=== PATIENT | male | born 1995 | race Caucasian/White ===

== ENCOUNTER → 2020-04-09 | Outpatient (CLI) | payer OTHER ==
[~2020-04-09] MED LIST: ADV500INH INFIL; ADVA1AER2 IN; ALB2.5NEB INH; ALBU0.084 INH; ALBU83IN IN; ALBUTEROL INH; AZITPOW PO; CELE20TA OR; CITA10TA2 PO; FLUT50SP; IBUP100S PO; PRED10TA2 PO; PRED20TA OR; PREDPOW10 PO; VENTAER IN; VENTAER PO
--- NOTE | 2020-04-09 16:52 | REP ---
INDICATION: CHRONIC PANSINUSITIS, DNS. COMPARISON: NONE. TECHNIQUE: Helical scanning is acquired and 2 mm axial images re-formatted. Coronal MPR images are generated and reviewed. FINDINGS: There are 2 small mucous retention cyst in the floor of the left maxillary sinus. The maxillary sinuses are otherwise clear. Ethmoid air cells are clear. Sphenoid and frontal sinuses are clear. Mastoid aeration is normal and symmetric. The bony nasal septum deviates somewhat to the left with a small beak. Nasal turbinates soft tissues are symmetric. There is a small aerated ana bullosa on the left. There are small Sridhar cells bilaterally but ostiomeatal complexes are patent. Nasal ethmoid recesses are unremarkable. No bony destructive lesion is seen. No intraorbital or deep facial soft tissue mass is seen. The visualized intracranial structures are unremarkable. IMPRESSION: Mild mucosal thickening in the inferior aspect the left maxillary sinus. Leftward deviation of the nasal septum. Sridhar cells. Otherwise negative. <Electronically signed by Darrian Hoyt > 04/09/20 [id number]
== END ==
LOC: M RAD 15:37
PROVIDERS: ATTEND Specialist
DX: J32.4 Chronic pansinusitis (principal); J34.2 Deviated nasal septum

== ENCOUNTER 2020-05-20 16:39 | Inpatient (IN) | payer OTHER ==
[~2020-05-20] VITALS: Ht 170.2 cm; Wt 109.1 kg
--- OUTSIDE RECORDS SUMMARY | 2020-05-20 16:48 | CCD | Continuity of Care Document ---
Author Author Rodrick ROA [facility] Organization Unknown Address [address] [address] Phone [phone] Care Team Providers Care Machine Assembler Supervisor Name Role Phone [facility] Allergy - Allergy & Immunology AUTM [phone] [facility] - Mental Health AUTM [phone] Problems Active Problems Provider Date Allergic asthma without status asthmaticus Kayode Roa RPA Onset: 12/31/2013 Allergic condition Kayode Roa RPA Onset: 12/31/2013 Familial hypoalphalipoproteinemia Kayode Roa RPA Ons et: 01/01/2014 Autistic disorder Kayode Roa RPA Onset: 08/30/2019 Social History Type Date Description Comments Sex Unknown ETOH Use Denies alcohol use Tobacco Use Start: Unknown Patient has never smoked Recreational Drug Use Denies Drug Use Allergies, Adverse Reactions, Alerts Active Allergies Reaction Severity Comments Date Amoxicillin Urticaria Moderate 12/31/2013 Medications Active Medications SIG Qnty Indications Ordering Provide r Date Citalopram Hydrobromide 10mg Table ts 1 by mouth every day at bedtime 30tabs Adin Murillo D.O. , FAAFP 08/30/2019 Ventolin HFA 108(90Base) mcg/Act A erosol ii puffs every 4-6 hours as needed 8gm Adin batista D.O., FAAFP Medications Administered in Office Medication SIG Qnty Indications Ordering Provider Date Injection (SC)/(Im) Injection Nurses Schedule 06/13/2014 Immunizations CPT Code Status Date Vaccine Lot # [id number] Given 03/06/2020 Influenza Virus Vaccine, Quadrivalent, Slit Virus, Im Use 3Y & Up [id number] Vital Signs Date Vital Result Comment 03/06/2020 2:11pm BP Systolic 110 mmHg BP Diastolic 64 mmHg Body Temperature 98.7 F Heart Rate 58 /min Respiratory Rate 16 /min Height 66.75 inches 5'6.75" Weight 232.00 lb [place] Body Weight 142 lb BMI (Body Mass Index) 36.6 kg/m2 O2 % BldC Oximetry 97 % 08/30/2019 3:57pm BP Systolic 124 mmHg BP Diastolic 62 mmHg Body Temperature 98.3 F Heart Rate 72 /min Respiratory Rate 16 /min Height 66.75 inches 5'6.75" Weight 217.00 lb [place] Body Weight 142 lb BMI (Body Mass Index) 34.2 kg/m2 O2 % BldC Oximetry 97 % Results Description No Information Available Procedures Description No Information Available Medical Devices Description No Information Available Encounters Type Date Location Provider Dx Diagnosis Office Visit 03/06/2020 1:15p [place] [facility] Kayode Roa, RP A J34.2 Deviated nasal septum R09.81 Nasal congestion J32.9 Chronic sinusitis, unspecifi ed Z23 Encounter for immunization Assessments Date Code Description Provider 03/06/2020 J34.2 Deviated nasal septum Nicolette Roa, DONNIE 03/06/2020 R09.81 Nasal congestion Kayode Roa, DONNIE 03/06/2020 J32.9 Chronic sinusitis, unspecified H Kayode jenkins, DONNIE 03/06/2020 Z23 Encounter for immunization Kayode Grossman RPA Plan of Treatment Future Appointment(s):* 06/08/2020 1:00 pm - Kayode Roa, DONNIE at [facility] Functional Status Description No Information Available Mental Status Description No Information Available Referrals Refer to Reason for Referral Status Appt Date Eliceo Pugh M.D. Septal deviation with chroni c sinus issues. External deformity. Sent [facility] [address] [address] [phone]
--- OUTSIDE RECORDS SUMMARY | 2020-05-20 16:48 | CCD | Continuity of Care Document ---
Author Author Rodrick ROA [facility] Organization Unknown Address [address] [address] Phone [phone] Care Team Providers Care Heating Worker Name Role Phone [facility] Allergy - Allergy & Immunology AUTM [phone] [facility] - Mental Health AUTM [phone] Problems Active Problems Provider Date Allergic asthma [...] Injection (SC)/(Im) Injection Nurses Schedule 06/13/2014 Immunizations Description No Information Available Vital Signs Date Vital Result Comment 08/30/2019 3:57pm BP Systolic 124 mmHg BP Diastolic 62 mmHg Body Temperature 98.3 F Heart Rate 72 /min Respiratory Rate 16 /min Height 66.75 inches 5'6.75" Weight 217.00 lb [place] Body Weight 142 lb BMI (Body Mass Index) 34.2 kg/m2 O2 % BldC Oximetry 97 % 05/15/2018 4:01pm BP Systolic 124 mmHg BP Diastolic 70 mmHg Body Temperature 98.3 F Heart Rate 80 /min Respiratory Rate 16 /min Height 66.75 inches 5'6.75" Weight 234.00 lb [place] Body Weight 142 lb BMI (Body Mass Index) 36.9 kg/m2 O2 % BldC Oximetry 98 % Results Description No Information Available Procedures Description No Information Available Medical Devices Description No Information Available Encounters Type Date Location Provider Dx Diagnosis Office Visit 03/06/2020 1:15p [place] [facility] Kayode Roa, RP A J34.2 Deviated nasal septum R09.81 Nasal congestion J32.9 Chronic sinusitis, unspecifi ed Assessments Date Code Description Provider 03/06/2020 J34.2 Deviated nasal septum Nicolette Roa, RPA 03/06/2020 R09.81 Nasal congestion Kayode Roa, RPA 03/06/2020 J32.9 Chronic sinusitis, unspecified H Kayode jenkins, RPA Plan of Treatment No Information Available Functional Status Description No Information Available Mental Status Description No Information Available Referrals Refer to Reason for Referral Status Appt Date Eliceo Pugh M.D. Septal deviation with chroni c sinus issues. External deformity. Created [facility] [address] [address] [phone]
--- OUTSIDE RECORDS SUMMARY | 2020-05-20 16:49 | CCD ---
Author Author [facility] Organization [facility] Address Unknown Phone Unavailable Care Team Providers Care Toolroom Machinist Name Role Phone Melodie Roa Kayode PA Unavailable Unavailable Crispin, D Kayode PA Unavailable Unavailable Crispin, D Kayode PA Unavailable Unavailable Crispin, D Kayode PA Unavailable Unavailable Crispin, D Kayode PA Unavailable Unavailable Crispin, D Kayode PA Unavailable Unavailable Crispin, D Kayode PA Unavailable Unavailable Crispin, D Kayode PA Unavailable Unavailable Crispin, D Kayode PA Unavailable Unavailable Crispin, D Kayode PA Unavailable Unavailable Crispin, D Kayode PA Unavailable Unavailable Crispin, D Kayode PA Unavailable Unavailable Crispin, D Kayode PA Unavailable Unavailable Crispin, D Kayode PA Unavailable Unavailable Crispin, D Kayode PA Unavailable Unavailable Crispin, D Kayode PA Unavailable Unavailable Crispin, D Kayode PA Unavailable Unavailable Crispin, D Kayode PA Unavailable Unavailable Crispin, D Kayode PA Unavailable Unavailable Crispin, D Kayode PA Unavailable Unavailable Crispin, D Kayode PA Unavailable Unavailable Crispin, D Kayode PA Unavailable Unavailable Crispin, D Kayode PA Unavailable Unavailable Crispin, D Kayode PA Unavailable Unavailable Cripsin, D Kayode PA Unavailable Unavailable Crispin, D Kayode PA Unavailable Unavailable Crispin, D Kayode PA Unavailable Unavailable Crispin, D Kayode PA Unavailable Unavailable Crispin, D Kayode PA Unavailable Unavailable Crispin, D Kayode PA Unavailable Unavailable Crispin, D Kayode PA Unavailable Unavailable Crispin, D Kayode PA Unavailable Unavailable Crispin, D Kayode PA Unavailable Unavailable Crispin, D Kayode PA Unavailable Unavailable Crispin, D Kayode PA Unavailable Unavailable Crispin, D Kayode PA Unavailable Unavailable Crispin, D Kayode PA Unavailable Unavailable Crispin, D Kayode PA Unavailable Unavailable Crispin, D Kayode PA Unavailable Unavailable Crispin, D Kayode PA Unavailable Unavailable Crispin, D Kayode PA Unavailable Unavailable Crispin, D Kayode PA Unavailable Unavailable Crispin, D Kayode PA Unavailable Unavailable Crispin, D Kayode PA Unavailable Unavailable Crispin, D Kayode PA Unavailable Unavailable Crispin, D Kayode PA Unavailable Unavailable Crispin, D Kayode PA Unavailable Unavailable Crispin, D Kayode PA Unavailable Unavailable Crispin, D Kayode PA Unavailable Unavailable Crispin, D Kayode PA Unavailable Unavailable Crispin, D Kayode PA Unavailable Unavailable Crispin, D Kayode PA Unavailable Unavailable Crispin, D Kayode PA Unavailable Unavailable Crispin, D Kayode PA Unavailable Unavailable Crispin, D Kayode PA Unavailable Unavailable Crispin, D Kayode PA Unavailable Unavailable Crispin, D Kayode PA Unavailable Unavailable Crispin, D Kayode PA Unavailable Unavailable Crispin, D Kayode PA Unavailable Unavailable Crispin, D Kayode PA Unavailable Unavailable Crispin, D Kayode PA Unavailable Unavailable Crispin, D Kayode PA Unavailable Unavailable Crispin, D Kayode PA Unavailable Unavailable BROUGHAL, C LEEANN PA Unavailable Unavailable BROUGHAL, C LEEANN PA Unavailable Unavailable BROUGHAL, C LEEANN PA Unavailable Unavailable BROUGHAL, C LEEANN PA Unavailable Unavailable BROUGHAL, C LEEANN PA Unavailable Unavailable BROUGHAL, C LEEANN PA Unavailable Unavailable Re-disclosure Warning The records that you are about to access may contain information from federally-assisted alcohol or drug abuse programs. If such information is present, then the following federally mandated warning applies: This information has been disclosed to you from records protected by federal confidentiality rules (42 CFR part 2). The federal rules prohibit you from making any further disclosure of this information unless further disclosure is expressly permitted by the written consent of the person to whom it pertains or as otherwise permitted by 42 CFR part 2. A general authorization for the release of medical or other information is NOT sufficient for this purpose. The Federal rules restrict any use of the information to criminally investigate or prosecute any alcohol or drug abuse patient.The records that you are about to access may contain highly sensitive health information, the redisclosure of which is protected by Article 27-F of the [facility] Public Health law. If you continue you may have access to information: Regarding HIV / AIDS; Provided by facilities licensed or operated by the [facility] Office of Mental Health; or Provided by the [facility] Office for People With Developmental Disabilities. If such information is present, then the following [facility] mandated warning applies: This information has been disclosed to you from confidential records which are protected by state law. State law prohibits you from making any further disclosure of this information without the specific written consent of the person to whom it pertains, or as otherwise permitted by law. Any unauthorized further disclosure in violation of state law may result in a fine or fpc sentence or both. A general authorization for the release of medical or other information is NOT sufficient authorization for further disc losure. Family History Family Member Name Family Member Gender Family Member Status Date o f Status Description Data Source(s) Unknown Male Problem [facility]ENT ([facility]) Unknown Unknown Problem [facility] ([facility]) Unknown Unknown Problem [facility] ([facility]) Encounters Encounter Providers Location Date Indications Data Source(s ) Outpatient Attender: Kayode BROOKS [facility] 01:15:00 PM EDT [facility] ([facility] Outpatient Attender: LEEANN BROOKS CPSCAORT-LABPNP 12/06 03:10:00 PM EDT - 12/24/2019 03:11:00 PM EDT COVID 19 COLLEGE SCREENING [facility] COVID 19 COLLEGE SCREENING Patient discharged. Outpatient Attender: Kayode BROOKS [facility] 04:00:00 PM EDT MED[facility] ([facility] Immunizations Vaccine Date Status Description Data Source(s) New in 2012. IIV4 03/06/2020 02:12:00 PM EDT completed [facility] ([facility] Medications Medication Brand Name Start Date Product Form Dose Route Admi nistrative Instructions Pharmacy Instructions Status Indications Reaction Description Data Source(s) 90 mcg/actuation 02/02/2020 12:00:00 AM EDT HFA aerosol inha ler 8 INHALE TWO PUFFS BY MOUTH EVERY 4 TO 6 HOURS NEEDED INHALE TWO PUFFS BY MOUTH EVERY 4 TO 6 HOURS NEEDED SOLD: 02/03/2020 [facility] 10 mg 08/30/2019 12:00:00 AM EDT tablet 30 TAKE ONE TABLET BY MOUTH EVERY DAY AT BEDTIME TAKE ONE TABLET BY MOUTH EVERY DAY AT BEDTIME SOLD: 11/11/2019 [facility] 250 mg 08/30/2019 12:00:00 AM EDT tablet 6 TAKE TWO TABLETS BY MOUTH AT ONCE ON THE FIRST DAY THEN TAKE ONE DAILY THEREAFTER TAKE TWO TABLETS BY MOUTH AT ONCE ON THE FIRST DAY THEN TAKE ONE DAILY THEREAFTER SOLD: 08/31/2019 [facility] 10 mg 08/30/2019 12:00:00 AM EDT tablet 30 TAKE ONE TABLET BY MOUTH EVERY DAY AT BEDTIME TAKE ONE TABLET BY MOUTH EVERY DAY AT BEDTIME SOLD: 10/05/2019 [facility] Citalopram 10 MG Oral Tablet Citalopram Hydrobromide 08/30/2019 12:00:00 AM EDT ORAL active MEDENT ( [facility] 10 mg 08/30/2019 12:00:00 AM EDT tablet 30 TAKE ONE TABLET BY MOUTH EVERY DAY AT BEDTIME TAKE ONE TABLET BY MOUTH EVERY DAY AT BEDTIME SOLD: 08/31/2019 [facility] Azithromycin 250 MG Oral Tablet Azithromycin 08/30/2019 12:00:00 AM E DT ORAL active MEDENT ([facility] Insurance Providers Payer name Policy type / Coverage type Policy ID Covered democrat ID Covered democrat's relationship to leach Policy Leach Plan Information [facility] [id number] SP [id number] [facility] O [id number] S [id number] [facility] [id number] SP [id number] [facility] ESSENTIAL PLAN [id number] S [id number] [facility] SELECT CARE [id number] CHILD [id number] [facility] Health Plan Health Maintenance Organization (HMO) [id number] Self [id number] [facility]BS Medigap Part B [id number] Self [id number] Medicaid Medicaid [id number] Self [id number] Community Plan Commercial [id number] Self [id number] [place] BC//BS Medigap Part B [id number] Family Dependent [id number] [employer] BC//BS Commercial [id number] Self [id number] BS Child Health Plus Health Maintenance Organization (HMO) Self PUPIL BENEFITS HEALTH PL S [id number] [employer] BCBS P [id number] S [id number] D [employer] BCBS Dental P [id number] S [id number] PUPIL BENEFITS PLAN, INC [id number] SP [id number] BLUE CROSS THOMAS PLAN [id number] SP [id number] D Managed Care [facility] P [id number] S [id number] Medicaid Dental S [id number] S [id number] D Healthplex O [id number] HMO BLUE [id number] SP [id number] Problems, Conditions, and Diagnoses Code Display Name Description Problem Type Effective Dates Data Source(s) [id number] Autistic disorder Autistic disorder Problem 08/29 12:00:00 AM EDT [facility] ([facility] Z11.59 Encounter for screening for other viral diseases ENCOUNTER FOR SCREENING FOR OTHER VIRAL DISEASES Diagnosis 12/24/2019 03:10:00 PM EDT [facility] Z02.0 Encounter for examination for admission to educational institution ENCOUNTER FOR EXAM FOR ADMISSION TO EDUCATIONAL INSTITUTION Diagnosis 12/24/2019 03:10:00 PM EDT [facility] Surgeries/Procedures Procedure Description Date Indications Data Source(s) U0003 SARS-CoV-2 detection by nucleic acid 12/24/2019 12:00: 00 AM EDT [facility] Results ID Date Data Source [id number] 03/24/2020 12:55:00 PM EST [facility] Name Value Range Interpretation Code Description Data Zeina rce(s) Supporting Document(s) SARS-CoV-2 RNA Resp Ql YASMIN+probe [facility] This lab was ordered by Светлана solomon and reported by [employer] ID Date Data Source [id number] 02/18/2020 08:51:00 AM EDT [facility] Name Value Range Interpretation Code Description Data Zeina rce(s) Supporting Document(s) SARS-CoV-2 RNA Resp Ql YASMIN+probe [facility] This lab was ordered by Светлана [facility] juanito and reported by [employer]. ID Date Data Source [id number] 12/27/2019 01:31:00 PM EDT [facility] Name Value Range Interpretation Code Description Data Zeina rce(s) Supporting Document(s) SARS-CoV-2 RNA Resp Ql YASMIN+probe [facility] This lab was ordered by Светлана [facility] juanito and reported by [employer]. ID Date Data Source [id number] 12/27/2019 08:50:00 AM EDT [facility] Name Value Range Interpretation Code Description Data Zeina rce(s) Supporting Document(s) SARS-CoV-2 YASMIN result Normal (applies to non-nu meric results) [facility] Reference Not Detected This test was de veloped and its performance characteristics determined by [employer]. This test has not been FDA cleared or approved. This test has been authorized by FDA under an Emergency Use Authorization (EUA). This test is only authorized for the duration of time the declaration that circumstances exist justifying the authorization of the emergency use of in vitro diagnostic tests for detection of SARS-CoV-2 virus and/or diagnosis of COVID-19 infection under section 564(b)(1) of the Act, 21 U.S.C. 360bbb-3(b)(1), unless the authorization is terminated or revoked sooner. When diagnostic testing is negative, the possibility of a false negative result should be considered in the context of a patient's recent exposures and the presence of clinical signs and symptoms consistent with COVID-19. An individual without symptoms of COVID-19 and who is not shedding SARS-CoV-2 virus would expect to have a negative (not detected) result in this assay. Performed at: [address] [id number] Adjunct Nursing Faculty: Nahomy Romero MD, Phone: [phone] Procedure Vital Signs ID Date Data Source UNK Name Value Range Interpretation Code Description Data Source(s) Oxygen saturation in Arterial blood by Pulse oximetry 95 % 95 % MEDENT ([facility] Body mass index (BMI) [Ratio] 37.7 kg/m2 37.7 k g/m2 MEDENT ([facility] [place] body weight 142 [lb_av] 142 [lb_av] MEDEN T ([facility] Body weight 239.00 [lb_av] 239.00 [lb_av] MEDEN T ([facility] Body height 66.75 [in_i] 66.75 [in_i] MEDENT ([facility] 5'6.75" Respiratory rate 18 /min 18 /min MEDENT ( [facility] Heart rate 114 /min 114 /min MED[facility] ([facility] Body temperature 97.2 [degF] 97.2 [degF] MEDENT ([facility] Diastolic blood pressure 72 mm[Hg] 72 mm[Hg] MEDENT ([facility] Systolic blood pressure 104 mm[Hg] 104 mm[Hg] M EDENT ([facility] Oxygen saturation in Arterial blood by Pulse oximetry 97 % 97 % MEDENT ([facility] Body mass index (BMI) [Ratio] 36.6 kg/m2 36.6 k g/m2 MED[facility] ([facility] [place] body weight 142 [lb_av] 142 [lb_av] MEDEN T ([facility] Body weight 232.00 [lb_av] 232.00 [lb_av] MEDEN T ([facility] Body height 66.75 [in_i] 66.75 [in_i] MEDENT ([facility] 5'6.75" Respiratory rate 16 /min 16 /min MEDENT ( [facility] Heart rate 58 /min 58 /min MEDENT ([facility] Body temperature 98.7 [degF] 98.7 [degF] MEDENT ([facility] Diastolic blood pressure 64 mm[Hg] 64 mm[Hg] MED[facility] ([facility] Systolic blood pressure 110 mm[Hg] 110 mm[Hg] Dean GOODE ([facility] Oxygen saturation in Arterial blood by Pulse oximetry 97 % 97 % DC ([facility] Body mass index (BMI) [Ratio] 34.2 kg/m2 34.2 k g/m2 MEDENT ([facility] [place] body weight 142 [lb_av] 142 [lb_av] MEDEN T ([facility] Body weight 217.00 [lb_av] 217.00 [lb_av] MEDEN T ([facility] Body height 66.75 [in_i] 66.75 [in_i] [facility] ( [facility] 5'6.75" Respiratory rate 16 /min 16 /min MEDYOLY ( [facility] Heart rate 72 /min 72 /min MEDYOLY ([facility] Body temperature 98.3 [degF] 98.3 [degF] MEDYOLY ([facility] Diastolic blood pressure 62 mm[Hg] 62 mm[Hg] DC ([facility] Systolic blood pressure 124 mm[Hg] 124 mm[Hg] M RUPA ([facility]
[2020-05-20 19:49] LABS: HEMOGLOBIN 15.8 g/dl (13.5-17.5); MEAN CORPUSCULAR HGB CONC 32.2 g/dl (32.0-36.5); MEAN CORPUSCULAR VOLUME 86.7 fl (80.0-96.0); PLATELET COUNT, AUTOMATED 339 10^3/uL (150-450); RED BLOOD COUNT 5.65 10^6/uL (4.30-6.10); WHITE BLOOD COUNT 20.1 10^3/uL (4.0-10.0)
[2020-05-20 20:19] LABS: AMPHETAMINES LEVEL URINE NEGATIVE (NEGATIVE); BARBITURATES URINE NEGATIVE (NEGATIVE); BENZODIAZEPINES URINE NEGATIVE (NEGATIVE); CANNABINOIDS URINE NEGATIVE (NEGATIVE); COCAINE METABOLITE URINE NEGATIVE (NEGATIVE); METHADONE URINE NEGATIVE (NEGATIVE); OPIATES URINE NEGATIVE (NEGATIVE); PHENCYCLIDINE URINE NEGATIVE (NEGATIVE)
[2020-05-20 20:31] LABS: ACETAMINOPHEN LEVEL < 2.0 UG/ML (10.0-30.0); ALBUMIN 4.4 GM/DL (3.2-5.2); ALT/SGPT 48 U/L (12-78); BILIRUBIN,DIRECT 0.2 MG/DL (0.0-0.2); BLOOD UREA NITROGEN 15 MG/DL (7-18); CALCIUM LEVEL 9.3 MG/DL (8.5-10.1); CARBON DIOXIDE LEVEL 31 MEQ/L (21-32); CHLORIDE LEVEL 105 MEQ/L (98-107); CREATININE FOR GFR 1.13 MG/DL (0.70-1.30); ETHYL ALCOHOL (ETHANOL) < 0.003 % (0.000-0.010); GLOMERULAR FILTRATION RATE > 60.0 (>60); GLUCOSE, FASTING 111 MG/DL (70-100); POTASSIUM SERUM 3.8 MEQ/L (3.5-5.1); SALICYLATE LEVEL < 1.7 MG/DL (5.0-30.0); SODIUM LEVEL 141 MEQ/L (136-145); TOTAL PROTEIN 7.4 GM/DL (6.4-8.2)
[2020-05-20] MEDS ORDERED: VENTAER INH (20:43)
--- OUTSIDE RECORDS SUMMARY | 2020-05-20 21:14 | CCD ---
Author Author [facility] Organization [facility] Address Unknown Phone Unavailable Care Team Providers Care Chairman President And Chief Executive Officer Name Role Phone Melodie Roa Kayode PA [...] is protected by Article 27-F of the [facility] Public Health law. If you continue you may have access to information: Regarding HIV / AIDS; Provided by facilities licensed or operated by the [facility] Office of Mental Health; or Provided by the [facility] Office for People With Developmental Disabilities. If such information is present, then the following [facility] mandated warning applies: This information has been [...] law may result in a fine or fdc sentence or both. A general authorization for [...] Data Source(s ) Outpatient Attender: Kayode BROOKS [place] [facility] 01:15:00 PM EDT [facility] ([facility] Outpatient Attender: LEEANN BROOKS CPSCAORT-LABPNP 12/06 03:10:00 PM EDT - 12/24/2019 03:11:00 PM EDT COVID 19 COLLEGE SCREENING [facility] COVID 19 COLLEGE SCREENING Patient discharged. Outpatient Attender: Kayode BROOKS [place] [facility] 04:00:00 PM EDT [facility] ([facility] [...] 12:00:00 AM EDT ORAL active MEDENT ( [facility] 10 mg 08/30/2019 12:00:00 AM EDT tablet 30 TAKE ONE TABLET BY MOUTH EVERY DAY AT BEDTIME TAKE ONE TABLET BY MOUTH EVERY DAY AT BEDTIME SOLD: 08/31/2019 [facility] Azithromycin 250 MG Oral Tablet Azithromycin 08/30/2019 12:00:00 AM E DT ORAL active MEDENT ([facility] Insurance Providers Payer name Policy type / Coverage type Policy ID Covered republican ID Covered republican's relationship to leach Policy Leach Plan Information [facility] [id number] SP [id number] [facility] BLUE [id number] SP [id number] [facility] O [id number] S [id number] [facility] [id number] SP [id number] [facility] ESSENTIAL PLAN [id number] S [id number] [facility] SELECT CARE [id number] CHILD [id number] [facility] Health Plan Health Maintenance Organization (HM) [id number] Self [id number] Carlos BC//BS Medigap Part B [id number] Self [id number] Medicaid Medicaid [id number] Self [id number] Community Plan Commercial [id number] Self [id number] Excell[employer] BC//BS Medigap Part B [id number] Family Dependent [id number] Excell[employer] BC//BS Commercial [id number] Self [id number] BS Child Health Plus Health Maintenance Organization (HMO) Self PUPIL BENEFITS HEALTH PL S [id number] C [id number] [employer] BCBS P [id number] S [id number] D [employer] BCBS Dental P [id number] S [id number] PUPIL BENEFITS PLAN, INC [id number] SP [id number] BLUE CROSS THOMAS PLAN [id number] SP [id number] D Managed Care [facility] P [id number] S [id number] Medicaid Dental S [id number] S [id number] D Healthplex O [id number] S [id number] HMO BLUE [id number] SP [id number] Problems, Conditions, and Diagnoses Code Display Name Description Problem Type Effective Dates Data Source(s) 423969223 Autistic disorder Autistic disorder Problem 08/29 12:00:00 AM EDT [facility] ([facility] Z11.59 Encounter for screening for other viral diseases ENCOUNTER FOR SCREENING FOR OTHER VIRAL DISEASES Diagnosis 12/24/2019 03:10:00 PM EDT [facility] Z02.0 Encounter for examination for admission to educational institution ENCOUNTER FOR EXAM FOR ADMISSION TO EDUCATIONAL INSTITUTION Diagnosis 12/24/2019 03:10:00 PM EDT [facility] Surgeries/Procedures Procedure Description Date Indications Data Source(s) U0003 SARS-CoV-2 detection by nucleic acid 12/24/2019 12:00: 00 AM T [facility] Results ID Date Data Source [id number] 03/24/2020 12:55:00 PM EST [facility] Name Value Range Interpretation Code Description Data Zeina rce(s) Supporting Document(s) SARS-CoV-2 RNA Resp Ql YASMIN+probe [facility] This lab was ordered by Светлана solomon and reported by [employer]. ID Date Data Source [id number] 02/18/2020 08:51:00 AM EDT [facility] Name Value Range Interpretation Code Description Data Zeina rce(s) Supporting Document(s) SARS-CoV-2 RNA Resp Ql YASMIN+probe [facility] This lab was ordered by [facility] and reported by [employer], [facility]. ID Date Data Source [id number] 12/27/2019 01:31:00 PM EDT [facility] Name Value Range Interpretation Code Description Data Zeina rce(s) Supporting Document(s) SARS-CoV-2 RNA Resp Ql YASMIN+probe [facility] This lab was ordered by [facility]inio and reported by [employer], [facility]. ID Date Data Source [id number] 12/27/2019 08:50:00 AM EDT [facility] Name Value Range Interpretation Code Description Data Zeina rce(s) Supporting Document(s) SARS-CoV-2 YASMIN result Normal (applies to non-nu meric results) [facility] Reference Not Detected This test was de veloped and its performance characteristics determined by [employer]. This test has not been FDA cleared [...] detected) result in this assay. Performed at: [address] [id number] Cut Off Machine Unloader: Nahomy Romero MD, Phone: [phone] Procedure Vital Signs ID Date Data Source UNK Name Value Range Interpretation Code Description Data Source(s) Oxygen saturation in Arterial blood by Pulse oximetry 95 % 95 % MED[facility] ([facility] Body mass index (BMI) [Ratio] 37.7 kg/m2 37.7 k g/m2 MEDENT ([facility] [place] body weight 142 [lb_av] 142 [lb_av] MEDEN T ([facility] Body weight 239.00 [lb_av] 239.00 [lb_av] MEDEN T ([facility] Body height 66.75 [in_i] 66.75 [in_i] MED[facility] ([facility] 5'6.75" Respiratory rate 18 /min 18 /min MEDENT ( [facility] Heart rate 114 /min 114 /min [facility] ([facility] Body temperature 97.2 [degF] 97.2 [degF] [facility] ([facility] Diastolic blood pressure 72 mm[Hg] 72 mm[Hg] [facility] ([facility] Systolic blood pressure 104 mm[Hg] 104 mm[Hg] M EDENT ([facility] Oxygen saturation in Arterial blood by Pulse oximetry 97 % 97 % [facility] ([facility] Body mass index (BMI) [Ratio] 36.6 kg/m2 36.6 k g/m2 MED[facility] ([facility] [place] body weight 142 [lb_av] 142 [lb_av] MEDEN T ([facility] Body weight 232.00 [lb_av] 232.00 [lb_av] MEDEN T ([facility] Body height 66.75 [in_i] 66.75 [in_i] MEDENT ([facility] 5'6.75" Respiratory rate 16 /min 16 /min MED[facility] ( [facility] Heart rate 58 /min 58 /min MED[facility] ([facility] Body temperature 98.7 [degF] 98.7 [degF] [facility] ([facility] Diastolic blood pressure 64 mm[Hg] 64 mm[Hg] [facility] ([facility] Systolic blood pressure 110 mm[Hg] 110 mm[Hg] M RUPA ([facility] Oxygen saturation in Arterial blood by Pulse oximetry 97 % 97 % MEDYOLY ([facility] Body mass index (BMI) [Ratio] 34.2 kg/m2 34.2 k g/m2 [facility] ([facility] [place] body weight 142 [lb_av] 142 [lb_av] MEDEN T ([facility] Body weight 217.00 [lb_av] 217.00 [lb_av] MEDEN T ([facility] Body height 66.75 [in_i] 66.75 [in_i] [facility] ( [facility] 5'6.75" Respiratory rate 16 /min 16 /min MED[facility] ( [facility] Heart rate 72 /min 72 /min MED[facility] ([facility] Body temperature 98.3 [degF] 98.3 [degF] [facility] ([facility] Diastolic blood pressure 62 mm[Hg] 62 mm[Hg] [facility] ([facility] Systolic blood pressure 124 mm[Hg] 124 mm[Hg] M RUPA ([facility]
[2020-05-20] MEDS ORDERED: MOM 30ML SUSPENSION UDC PO PRN (21:45)
[2020-05-20] MEDS ORDERED: ALBUTEROL 90 MCG/ACT 8GM HFA INHALER INH PRN (21:45)
[2020-05-20] MEDS ORDERED: ACETAMINOPHEN TAB 650MG DOSE (2X325MG) PO PRN (21:45)
[2020-05-20] MEDS ORDERED: OLANZapine ORAL DISINTEGRATING TAB 5MG PO PRN (21:45)
[2020-05-20] MEDS ORDERED: traZODone 50 MG TAB PO PRN (21:45)
[2020-05-20] MEDS ORDERED: NICOTINE 21MG/24HR 1 EA TRANSDERMAL TD PRN (21:45)
[2020-05-20] MEDS ORDERED: MAALOX 30 ML SUSP *UDC PO PRN (21:45)
--- OUTSIDE RECORDS SUMMARY | 2020-05-20 21:53 | CCD ---
Author Author [facility] Organization [facility] Address Unknown Phone Unavailable Care Team Providers Care Belt Sander Stone Name Role Phone Melodie Roa Kayode PA [...] Unavailable Crispin, D Kayode PA Unavailable Unavailable Rcispin, D Kayode PA Unavailable Unavailable Crispin, D [...] is protected by Article 27-F of the [facility] Public Health law. If you continue you may have access to information: Regarding HIV / AIDS; Provided by facilities licensed or operated by the [facility] Office of Mental Health; or Provided by the [facility] Office for People With Developmental Disabilities. If such information is present, then the following [facility] mandated warning applies: This information has been [...] law may result in a fine or skilled nursing sentence or both. A general authorization for [...] Data Source(s ) Outpatient Attender: Kayode BROOKS [place] [facility] 01:15:00 PM EDT [facility] ([facility] Outpatient Attender: LEEANN BROOKS CPSCAORT-LABPNP 12/06 03:10:00 PM EDT - 12/24/2019 03:11:00 PM EDT COVID 19 COLLEGE SCREENING [facility] COVID 19 COLLEGE SCREENING Patient discharged. Outpatient Attender: Kayode BROOKS [place] [facility] 04:00:00 PM EDT [facility] ([facility] [...] 12:00:00 AM EDT ORAL active MEDENT ( [facility] 10 mg 08/30/2019 12:00:00 AM EDT tablet 30 TAKE ONE TABLET BY MOUTH EVERY DAY AT BEDTIME TAKE ONE TABLET BY MOUTH EVERY DAY AT BEDTIME SOLD: 08/31/2019 [facility] Azithromycin 250 MG Oral Tablet Azithromycin 08/30/2019 12:00:00 AM E DT ORAL active MEDENT ([facility] Insurance Providers Payer name Policy type / Coverage type Policy ID Covered green party ID Covered green party's relationship to leach Policy Leach Plan Information [facility] [id number] SP [id number] [facility] BLUE [id number] SP [id number] [facility] O [id number] S [id number] [facility] [id number] SP [id number] [facility] ESSENTIAL PLAN [id number] S [id number] [facility] SELECT CARE [id number] CHILD 82 [id number] [facility] Health Plan Health Maintenance Organization (HM) [id number] Self [id number] Carlos BC//BS Medigap Part B [id number] Self [id number] Medicaid Medicaid [id number] Self [id number] Community Plan Commercial [id number] Self [id number] [employer] BC//BS Medigap Part B [id number] Family Dependent [id number] [employer] BC//BS Commercial [id number] Self [id number] BS Child Health Plus Health Maintenance Organization (HMO) Self PUPIL BENEFITS HEALTH PL S [id number] C [id number] [employer] BCBS P [id number] S [id number] D [employer] BCBS Dental P [id number] S [id number] PUPIL BENEFITS PLAN, INC [id number] SP [id number] BLUE CROSS THOMAS PLAN [id number] SP [id number] D Managed [facility] P [id number] S [id number] Medicaid Dental S [id number] S [id number] D Healthplex O [id number] HMO BLUE [id number] SP [id number] Problems, Conditions, and Diagnoses Code Display Name Description Problem Type Effective Dates Data Source(s) [id number] Autistic disorder Autistic disorder Problem 08/29 12:00:00 AM EDT [facility] ([facility] Z11.59 Encounter for screening for other viral diseases ENCOUNTER FOR SCREENING FOR OTHER VIRAL DISEASES Diagnosis 12/24/2019 03:10:00 PM EDT [facility] Z02.0 Encounter for examination for admission to educational institution ENCOUNTER FOR EXAM FOR ADMISSION TO EDUCATIONAL INSTITUTION Diagnosis 12/24/2019 03:10:00 PM EDT [facility] Surgeries/Procedures Procedure Description Date Indications Data Source(s) U0003 SARS-CoV-2 detection by nucleic acid 12/24/2019 12:00: 00 AM T [facility] Results ID Date Data Source [id number] 03/24/2020 12:55:00 PM EST [facility] Name Value Range Interpretation Code Description Data Zeina rce(s) Supporting Document(s) SARS-CoV-2 RNA Resp Ql YASMIN+probe [facility] This lab was ordered by Светлана solomon and reported by [employer] [place]. ID Date Data Source [id number] 02/18/2020 08:51:00 AM EDT [facility] Name Value Range Interpretation Code Description Data Zeina rce(s) Supporting Document(s) SARS-CoV-2 RNA Resp Ql YASMIN+probe [facility] This lab was ordered by [facility] [employer] and reported by [employer] [place]. ID Date Data Source [id number] 12/27/2019 01:31:00 PM EDT [facility] Name Value Range Interpretation Code Description Data Zeina rce(s) Supporting Document(s) SARS-CoV-2 RNA Resp Ql YASMIN+probe [facility] This lab was ordered by [facility] [employer] and reported by [employer] [place]. ID Date Data Source [id number] 12/27/2019 08:50:00 AM EDT [facility] Name Value Range Interpretation Code Description Data Zeina rce(s) Supporting Document(s) SARS-CoV-2 YASMIN result Normal (applies to non-nu meric results) [facility] Reference Not Detected This test was de veloped and its performance characteristics determined by [employer]. This test has not been FDA cleared [...] detected) result in this assay. Performed at: [address] [id number] Soap Boiler: Nahomy Romero MD, Phone: [phone] Procedure Vital Signs ID Date Data Source UNK Name Value Range Interpretation Code Description Data Source(s) Oxygen saturation in Arterial blood by Pulse oximetry 95 % 95 % [facility] ([facility] Body mass index (BMI) [Ratio] 37.7 kg/m2 37.7 k g/m2 MED[facility] ([facility] [place] body weight 142 [lb_av] 142 [lb_av] MEDEN T ([facility] Body weight 239.00 [lb_av] 239.00 [lb_av] MEDEN T ([facility] Body height 66.75 [in_i] 66.75 [in_i] MEDENT ([facility] 5'6.75" Respiratory rate 18 /min 18 /min MED[facility] ( [facility] Heart rate 114 /min 114 /min [facility] ([facility] Body temperature 97.2 [degF] 97.2 [degF] [facility] ([facility] Diastolic blood pressure 72 mm[Hg] 72 mm[Hg] [facility] ([facility] Systolic blood pressure 104 mm[Hg] 104 mm[Hg] M EDENT ([facility] Oxygen saturation in Arterial blood by Pulse oximetry 97 % 97 % [facility] ([facility] Body mass index (BMI) [Ratio] 36.6 kg/m2 36.6 k g/m2 [facility] ([facility] [place] body weight 142 [lb_av] 142 [lb_av] MEDEN T ([facility] Body weight 232.00 [lb_av] 232.00 [lb_av] MEDEN T ([facility] Body height 66.75 [in_i] 66.75 [in_i] MEDENT ([facility] 5'6.75" Respiratory rate 16 /min 16 /min MED[facility] ( [facility] Heart rate 58 /min 58 /min [facility] ([facility] Body temperature 98.7 [degF] 98.7 [degF] [facility] ([facility] Diastolic blood pressure 64 mm[Hg] 64 mm[Hg] [facility] ([facility] Systolic blood pressure 110 mm[Hg] 110 mm[Hg] M RUPA ([facility] Oxygen saturation in Arterial blood by Pulse oximetry 97 % 97 % MEDYOLY ([facility] Body mass index (BMI) [Ratio] 34.2 kg/m2 34.2 k g/m2 [facility] ([facility] [place] body weight 142 [lb_av] 142 [lb_av] MEDEN T ([facility] Body weight 217.00 [lb_av] 217.00 [lb_av] MEDEN T ([facility] Body height 66.75 [in_i] 66.75 [in_i] [facility] ( [facility] 5'6.75" Respiratory rate 16 /min 16 /min MED[facility] ( [facility] Heart rate 72 /min 72 /min [facility] ([facility] Body temperature 98.3 [degF] 98.3 [degF] [facility] ([facility] Diastolic blood pressure 62 mm[Hg] 62 mm[Hg] [facility] ([facility] Systolic blood pressure 124 mm[Hg] 124 mm[Hg] M RUPA ([facility]
[2020-05-20 22:26] LABS: RSV AMPLIFICATION NEGATIVE (NEGATIVE)
[2020-05-21 04:30] VITALS: BP 133/63
[2020-05-21] MEDS ORDERED: INFLUENZA QUADRIVALENT PF VACCINE 0.5ML SYRINGE IM ONE (09:00)
--- NOTE | 2020-05-21 15:38 | MHHPEPDOC ---
General Date Of Admission: May 21, 2020 Legal Status: 9.39 Chief Complaint " History of Present Illness HISTORY OF THE PRESENT ILLNESS: Patient is a 24 -year-old , male, who stats "I went on a three hour walk yesterday and didn't plan on coming back but my fmom found me." HE staes He reports having suicidal thoughts for 2.5 days and having brief suicidal thoughts for 8-10 months, some "brief bouts" in 2018. Rodrick reports he is new to graduate school and that his not abl to concentrate on his thesis. andfeels he is letting advosor down. He reports going to get a mechanical engineering master's degree. . Psychiatric Review of Systems Depression (2 or more weeks): depressed mood (began a couple years ago - last week or 2 it got "super bad." ), anhedonia (reports loss of interest in school assignements), insomnia/hypersomnia (3-4 days before admission, he was going to bed at 0300 because he was avoiding going to sleep."tomorrow will come all that much faster." ), feelings of excess/guilt (reports he feels guilty he is not getting his school work done. ), decreased energy ("at least half the time." ), suicidal thoughts (before admission - with plan to become hypothermic.), denies (denies suicidal thoughs at this interview) Ethel (4 or more days of): irritable/elevated mood (more irritable with others (including family) lately. ), denies Psychosis: paranoia (reports "i'm a little afraid of the dark." ) PTSD: denies Anxiety: gen/non-specific anxiety, situational anxiety, panic attacks (reports occassional panic attacks during the fall semester. Reports increased anxiety with school. ) Anxiety/ 6 months or more of: difficulty concentrating, irritability Past Psychiatric History Previous Psychiatric Diagnosis: September 2019 - "I broke down." and went to pcp who prescribed antidepressants Previous Psychiatric Admissions: around 10 he reported he threatened to jump out a window after parents split up and was brought to the emergency room - unsure if he was admitted Suicide Attempts: first suicide attempt -plan to walk until he became hypothermic Psychiatric Follow-up: only briefly saw pcp, denies any history of therapy or psychiatry Psychiatric medications: escitalopram - took for about 1-2 months "I think it was a little helpful." Past Medical History Medical Problems asthma - exercise induced - uses rescue inhaler as needed. Head Injury: Yes (high school - hit head on floor) Seizures: No Hospitalizations: Yes (R. knee surgery - 2014) Surgeries: Yes (R. knee surgery - torn ligament - 2014) Family Medical/Psychiatric HX Medical Problems medical maternal grandma - cancer - "a couple different kinds, I can't remember" mother - heart disease Paternal unknown Psychiatric sister - anxiety - brother - depression and anxiety ("admitted to [facility] I don't remember exactly what for") Substance abuse denies Suicide no completed suicides unknown about attempts Psychiatric Disorders: Yes Addiction: No Suicide Attemps/Completions: No Social History Childhood: Born and raised in [place], [place]. He reports he has a twin brother and a younger sister and was raised in [facility]. He reports he was raised by mother and father, states they are He reports school was "fine," didn't have close friends. He reported he felt school academics were "super easy" and then he went to [employer] for 2 years, graduated with an associate's in engineering, then went to [employer] and received a bachelor's in mechanical engineering and reported school was "very fun." He states he just started his master's in mechanical engineering in the spring. He reports the springester just began last Monday. Abuse/Trauma: denies "I don't really remember a lot of my past so who knows what happened" Current Living Situation: reports he has an apartment, which he shares a kitchen and common area with. He reports he came home to stay with his parents around March around . He states there is not a lot of room there because his younger sister moved into his room. Education: attending [employer] for Master's in Mechanical engineering Employment: TA for a math class Social Support: pt reports he doesn't really have a support system, but reports he would reach out to his family for support if he really needed it. Legal: denies Marital: denies Mental Status Examination General Appearance: unkempt, disheveled, hospital scubs/clothing Build: overweight Demeanor: withdrawn Eye Contact: avoidant Activity: average (fidgety) Behavior: cooperative Speech: clear, spontaneous, reg/rate,rhythm,volume, other (monotone ) Mood: depressed Affect: flat Thought Process: logical/linear, depressed Thought Content (Delusions): denies SI, HI, AVH Thought Content (Other): none reported, autistic (likely he falls into the autism spectrum. He complains of making and maintaning meaninful relationships, difficuly regulating emotions, monotone speech, sensitive to sounds, highly intelligent, strong interest in [employer] Income but unable to make graduate school demands, obssessive about inability to focus on school, reports he doesn't function well without structure and parents house where he is liviing he reports, "I need structure." Pt. also reports becoming irritable because he felt like his family had too much ketchup), appropriate, coherent Thought Content (Aggressive): none reported Perception (Hallucinations): none reported Perception (Other): none reported Cognition (Impairment of): none reported Cognition(Intelligence Est.): above average Oriented: Awake, Alert, Oriented times three Insight: fair Judgment: Fair Psychosis: Denies Diagnoses major depressive disorders, recurrent, moderate Generalized anxiety disorder adjustment disorder with depressed and anxious mood Rule out autistic spectrum traits A-FIB/CHADSVASC A-FIB History Current/History of A-Fib/PAF?: No Current PO Anticoag Therapy: No Assessment Rodrick is a 24 year old, domiciled, single white male who was admitted on a 9.39 from the emergency room after he presented with suicidal thoughts. He reports he is having a lot of stress related to just starting his master's degree in mechanical engineering and reports he is unable to start his work, states "I want to but I can't start it and I don't know why." He reports difficulties in focus and concentration, reports he just began school yesterday and has not looked at any expectations for this semester and is afraid to let people down. Rodrick reports that this caused him to have suicidal thoughts, with plan to walk in the cold until he became hypothermic. He states his mom found him and brought him in for an evaluation He currently denies suicidal thoughts. He reports that he has poor supports, has difficulties starting and maintaining relationships with people, and that he only relies on his family if he "absolutely has to.". He states he has been on lexapro in the past for 1-2 months and believes it was helpful in relieving his depressive symptoms but cannot remember. He states he was prescribed this by his pcp and that he stopped taking it because he ran out and didn't want to ask anyone to get him a refill. Initial Treatment Plan 1. Patient was admitted on a [9.39] status. 2. Complete history was obtained. 3. With patients permission, family will be contacted and database will be expanded. 4. Patients medication regimen will be reviewed and changed accordingly. 5. Patient will be provided with protected environment. 6. Patient will be treated with individual, group, and milieu therapies. 7. Patient will receive supportive psych-education. 8. Discharge planning will commence immediately. 9. Outpatient follow-up treatment will be strongly recommended. 10. The initial treatment plan will focus initially on: * Depression. * Risk for suicide. Management Plan Start lexapro 10 mg po daily hydroxyzine 50 mg po bid ESTIMATED LENGTH OF STAY: 3-5 days TIME SPENT COUNSELING AND COORDINATING INITIAL CARE: 60 minutes. Vital Signs Vital Signs Date Time Temp Pulse Resp B/P (MAP) Pulse Ox O2 Delivery O2 Flow Rate FiO2 05/21/20 04:30 97.7 115 16 133/63 (86) 98 Room Air Laboratory Data 24H Labs Laboratory Tests 2 05/20/20 19:38: Nucleated Red Blood Cells % (auto) 0.0, Anion Gap 5L, Glomerular Filtration Rate > 60.0, Calcium Level 9.3, Total Bilirubin 1.0, Direct Bilirubin 0.2, Aspartate Amino Transf (AST/SGOT) 23, Alanine Aminotransferase (ALT/SGPT) 48, Alkaline Phosphatase 76, Total Protein 7.4, Albumin 4.4, Albumin/Globulin Ratio 1.5, Thyroid Stimulating Hormone (TSH) 1.010, Salicylates Level < 1.7L, Urine Opiates Screen NEGATIVE, Urine Methadone Screen NEGATIVE, Acetaminophen Level < 2.0L, Urine Barbiturates Screen NEGATIVE, Urine Phencyclidine Screen NEGATIVE, Urine Amphetamines Screen NEGATIVE, Urine Benzodiazepines Screen NEGATIVE, Urine Cocaine Metabolite Screen NEGATIVE, Urine Cannabinoids Screen NEGATIVE, Ethyl Alcohol Level < 0.003 05/20/20 21:34: Coronavirus (COVID-19)(PCR) NEGATIVE, Influenza Type A (RT-PCR) NEGATIVE, Influenza Type B (RT-PCR) NEGATIVE, Respiratory Syncytial Virus (PCR) NEGATIVE CBC/BMP Laboratory Tests 05/20/20 19:38 Medications Scheduled Escitalopram Oxalate (Escitalopram Oxalate) 10 Mg Tablet, 10 MG PO DAILY for Depression Hydroxyzine HCl (Hydroxyzine HCl) 50 Mg Tablet, 50 MG PO BID for Anxiety Scheduled PRN Albuterol Sulfate (Ventolin Hfa) 18 Gm Hfa.aer.ad, 2 PUFF INH Q4H PRN for SOB/WHEEZING, (Reported) Allergies Coded Allergies: Penicillins (Verified Allergy, Intermediate, hives, 05/20/20) amoxicillin (Verified Allergy, Intermediate, hives, 05/20/20) MARYLOU ARMSTRONG NP May 21, 2020 15:26
[2020-05-21] MEDS: ESCITALOPRAM OXALATE 10 MG TAB (LEXAPRO) PO SCH (17:27)
[2020-05-21 18:00] VITALS: BP 121/91
--- NOTE | 2020-05-21 18:56 | HPEPDOC ---
[facility] Medical History & Physical Date of Admission May 20, 2020 Date of Service: May 21, 2020 History and Physical CHIEF COMPLAINT: Unspecified depressive disorder HISTORY OF PRESENT ILLNESS: Mr. Hurst is a 24-year-old male with asthma and depression who is in the inpatient mental health unit for unspecified depressive disorder. He has been having increasing suicidal thoughts of which now he is in the inpatient mental health unit. This afternoon, he feels okay. Denies any fever or chills, lightheadedness or dizziness, chest pain, abdominal pain, diarrhea, or dysuria. He does have some mild chest tightness on deep breath. He reports exercise-induced asthma and he does use a rescue inhaler. He asked a question about who he would see for leg length discrepancies. He isn't taking about a heel lift on the left leg as his right leg is longer. He may need to see an orthopedic surgeon or center machine set up operator to help and answer this question. PAST MEDICAL HISTORY: 1. Asthma 2. Depression PAST SURGICAL HISTORY: 1. Right knee surgery for torn ligament SOCIAL HISTORY: Tobacco use: Denies ETOH: Denies Illicit drug use: Denies FAMILY HISTORY: At this time, he does not remember his parents medical history ALLERGIES: Please see below. REVIEW OF SYSTEMS: CONSTITUTIONAL: Denies any fever or chills. Denies lightheadedness or dizziness. ENT: Denies sore throat. RESPIRATORY: Reports some chest tightness on deep breath. Denies cough. CARDIOVASCULAR: Denies chest pain. GASTROINTESTINAL: Denies abdominal pain. Denies diarrhea. Denies constipation GENITOURINARY: Denies dysuria. CUTANEOUS: Denies rashes. MUSCULOSKELETAL: Denies muscle weakness. NEUROLOGICAL: Denies neuropathy. Denies paresthesias. PSYCHOLOGICAL: Reports depression. HOME MEDICATIONS: Please see below. PHYSICAL EXAMINATION: VITAL SIGNS: Temperature 98.2, pulse 93, respiratory rate 14, blood pressure 121/91, pulse oximetry 100 % on room air. GENERAL: Comfortable, in no apparent distress. HEENT: Head normocephalic/atraumatic, EOMI, sclera clear. NECK: Supple, no JVD. RESPIRATORY: Lungs clear to auscultation bilaterally, no rales, wheeze or rhonchi. CARDIOVASCULAR: Regular rate and rhythm. ABDOMEN: Soft, nontender, no guarding or rebound tenderness. Normal bowel sounds. MUSCLE SKELETAL: Muscle strength 5/5 in all extremities. NEUROLOGICAL: CN 312 grossly intact, no focal deficits noted. PSYCHOLOGICAL: Normal mood and affect LABORATORY DATA: See below. IMAGING: None MICROBIOLOGY: Please see below. ASSESSMENT AND PLAN: 1. Depression with suicidal ideation Being managed in the inpatient mental health unit 2. Asthma Continue albuterol as needed 3. Leukocytosis We will order a blood smear to look at WBCs Unlikely infectious in nature Patient may need a follow-up with hematology oncology if leukocytosis does not resolve Vital Signs Vital Signs Date Time Temp Pulse Resp B/P (MAP) Pulse Ox O2 Delivery O2 Flow Rate FiO2 05/21/20 18:00 98.2 93 14 121/91 (101) 100 05/21/20 04:30 Room Air Laboratory Data Labs 24H Laboratory Tests 2 05/20/20 19:38: Nucleated Red Blood Cells % (auto) 0.0, Anion Gap 5L, Glomerular Filtration Rate > 60.0, Calcium Level 9.3, Total Bilirubin 1.0, Direct Bilirubin 0.2, Aspartate Amino Transf (AST/SGOT) 23, Alanine Aminotransferase (ALT/SGPT) 48, Alkaline Phosphatase 76, Total Protein 7.4, Albumin 4.4, Albumin/Globulin Ratio 1.5, Thyroid Stimulating Hormone (TSH) 1.010, Salicylates Level < 1.7L, Urine Opiates Screen NEGATIVE, Urine Methadone Screen NEGATIVE, Acetaminophen Level < 2.0L, Urine Barbiturates Screen NEGATIVE, Urine Phencyclidine Screen NEGATIVE, Urine Amphetamines Screen NEGATIVE, Urine Benzodiazepines Screen NEGATIVE, Urine Cocaine Metabolite Screen NEGATIVE, Urine Cannabinoids Screen NEGATIVE, Ethyl Alcohol Level < 0.003 05/20/20 21:34: Coronavirus (COVID-19)(PCR) NEGATIVE, Influenza Type A (RT-PCR) NEGATIVE, Influenza Type B (RT-PCR) NEGATIVE, Respiratory Syncytial Virus (PCR) NEGATIVE CBC/BMP Laboratory Tests 05/20/20 19:38 Home Medications Scheduled PRN Albuterol Sulfate (Ventolin Hfa) 18 Gm Hfa.aer.ad, 2 PUFF INH Q4H PRN for SOB/WHEEZING Allergies Coded Allergies: Penicillins (Verified Allergy, Intermediate, hives, 05/20/20) amoxicillin (Verified Allergy, Intermediate, hives, 05/20/20) A-FIB/CHADSVASC A-FIB History Current/History of A-Fib/PAF?: No MAR,OSIRIS A. DO May 21, 2020 18:56
[2020-05-21] MEDS: hydrOXYzine 50 MG TAB PO SCH (21:07)
[2020-05-22 06:18] VITALS: BP 148/75
[2020-05-22 08:47] LABS: HEMATOCRIT 44.6 % (42.0-52.0); HEMOGLOBIN 14.4 g/dl (13.5-17.5); MEAN CORPUSCULAR HGB CONC 32.3 g/dl (32.0-36.5); MEAN CORPUSCULAR VOLUME 86.8 fl (80.0-96.0); PLATELET COUNT, AUTOMATED 250 10^3/uL (150-450); RED BLOOD COUNT 5.14 10^6/uL (4.30-6.10); WHITE BLOOD COUNT 8.1 10^3/uL (4.0-10.0)
[2020-05-22] MEDS ORDERED: ESCI10TA16 PO (09:21)
[2020-05-22] MEDS ORDERED: HYDR50TA70 PO (09:21)
[2020-05-22] MEDS: ESCITALOPRAM OXALATE 10 MG TAB (LEXAPRO) PO SCH (09:46)
[2020-05-22] MEDS: hydrOXYzine 50 MG TAB PO SCH (09:46)
--- NOTE | 2020-05-22 12:37 | MHDSPDOC ---
[facility] Discharge Summary Discharge Summary DATE OF ADMISSION: May 20, 2020 at 21:38 DATE OF DISCHARGE: May 22, 2020 1220 DISCHARGE DIAGNOSES: Major Depressive Disorder, recurrent, moderate Generalized anxiety disorder Adjustment disorder with depressed and anxious mood Rule out autistic spectrum traits REASON FOR ADMISSION: Patient is a 24 -year-old , male, who stats "I went on a three hour walk yesterday and didn't plan on coming back but my mom found me." He states he reports having suicidal thoughts for 2.5 days and having brief suicidal thoughts for 8-10 months, some "brief bouts" in 2018. Rodrick reports he is new to a graduate school and that his not able to concentrate on his thesis and feels he is letting advisor down. 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 He reports feeling depressed, anxious, overwhelmed, frustrated with his lack of motivation to finish his capstone. CONSULTANTS INVOLVED: See Medical H + P by Hospitalist TREATMENT AND PROGRESS ON THE UNIT : Patient was offered the following treatment modalities 1)individual therapy, 2)group therapy 3)mediation therapy, and 4) milieu therapy. HOSPITAL COURSE: [facility] 9.39 legal status and was observed for suicidal ideation and or gestures. He reported that he had depression and anxiety. He was started on Lexapro and Vistaril for his symptoms DISCHARGE ASSESSMENT: In today's session, patient reports a decrease in his depression, denies suicidal/homicidal ideation and was not observed with any abnormal psychotic symptoms. Patient is requesting discharge today. He reported that other peers are making him scared and nervous. The unit is also very volatile at the moment and with patient's demeanors suggesting that he may be on the Autism Spectrum particularly Asberger's this unit may not be the therapeutic for him and actually may be counterproductive. While patient was in the interview, I called his mother to discuss discharge plans. He is willing to stay with his parents over the weekend, I explained to his mother Clara that the patient did not feel that he would do well with his peers on the unit. He explained to his mother that he had less depression and no thoughts of suicide. She agrees to help him with speaking to his Advisor and parents will have him stay with them over the weekend. Explained medications with patient and parents and both verbalized understanding. Patient meets critiera for discharge and parents feel that he is safe for discharge today. 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 General Appearance: Dressed appropriate, hygiene and grooming is fair Build: overweight Demeanor: calm and cooperative Eye Contact: maintained eye contact Activity: average Behavior: cooperative Speech: clear, spontaneous, reg/rate, rhythm, volume, other (monotone ) Mood: reports decreased depressed, decreased anxiety Affect: reactive Thought Process: logical/linear Thought Content (Delusions): denies SI, HI, AVH Thought Content (Other): none reported, autistic (likely he falls into the autism spectrum. He complains of making and maintaining meaningful relationships, difficulty regulating emotions, monotone speech, sensitive to sounds, highly intelligent, strong interest in engineering but unable to make graduate school demands, obsessive about inability to focus on school, reports he doesn't function well without structure and parents house where he is living he reports, "I need structure." Pt. also reports becoming irritable because he felt like his family had too much ketchup), appropriate, coherent Thought Content (Aggressive): none reported Perception (Hallucinations): none reported Perception (Other): none reported Cognition (Impairment of): none reported Cognition(Intelligence Est.): above average Oriented: Awake, Alert, Oriented times three Insight: fair Judgment: Fair Psychosis: Denies MEDICATIONS ON DISCHARGE: See Medication Reconciliation PLAN/FOLLOWUP ARRANGEMENTS: See Mails Supervisor's Notes The amount of time spent in the coordination of care for this patient was approximately 25 minutes. Vital Signs/I&Os Vital Signs Date Time Temp Pulse Resp B/P (MAP) Pulse Ox O2 Delivery O2 Flow Rate FiO2 05/22/20 06:18 98.5 85 18 148/75 (99) 95 05/21/20 04:30 Room Air Laboratory Data Labs 24H Laboratory Tests 2 05/22/20 08:21: Nucleated Red Blood Cells % (auto) 0.0, Differential Slide Review Report, Peripheral Blood Smear Path Consult PERIPHERAL SMEAR CBC/BMP Laboratory Tests 05/22/20 08:21 Medications Scheduled Escitalopram Oxalate (Escitalopram Oxalate) 10 Mg Tablet, 10 MG PO DAILY for D epression, #7 Hydroxyzine HCl (Hydroxyzine HCl) 50 Mg Tablet, 50 MG PO BID for Anxiety, #14 Scheduled PRN Albuterol Sulfate (Ventolin Hfa) 18 Gm Hfa.aer.ad, 2 PUFF INH Q4H PRN for SOB/WHEEZING, (Reported) Allergies Coded Allergies: Penicillins (Verified Allergy, Intermediate, hives, 05/20/20) amoxicillin (Verified Allergy, Intermediate, hives, 05/20/20) MARYLOU ARMSTRONG NP May 22, 2020 12:30
== END 2020-05-22 12:58 | disposition home or self-care (01) | DRG 751 ==
LOC: M ED 16:39 → M ED INP 21:38 → M PSY 05-21 02:07
PROVIDERS: ADMIT Psychiatry & Neurology Psychiatry; ATTEND Psychiatry & Neurology Psychiatry
DX: F33.1 Major depressive disorder, recurrent, moderate (principal); R45.851 Suicidal ideations; F41.1 Generalized anxiety disorder; F43.23 Adjustment disorder with mixed anxiety and depressed mood; Z88.0 Allergy status to penicillin; J45.909 Unspecified asthma, uncomplicated; D72.829 Elevated white blood cell count, unspecified

== ENCOUNTER → 2020-06-03 | Outpatient (CLI) | payer SELFPAY ==
[~2020-06-03] MED LIST changes: +ESCI10TA16 PO; +HYDR50TA70 PO; +VENTAER INH
== END ==
LOC: M LABSMTC 11:19
PROVIDERS: ATTEND Pediatrics
DX: Z20.822 Contact with and (suspected) exposure to COVID-19 (principal)

== ENCOUNTER → 2020-06-24 | Outpatient (CLI) | payer OTHER ==
[~2020-06-24] MED LIST changes: +LEXA1TAB PO
== END ==
LOC: M LABSMTC 12:22
PROVIDERS: ATTEND Anesthesiology
DX: Z01.812 Encounter for preprocedural laboratory examination (principal); Z20.822 Contact with and (suspected) exposure to COVID-19

== ENCOUNTER 2020-06-29 07:30 | Day surgery (SDC) | payer OTHER ==
[~2020-06-29] VITALS: Ht 170.2 cm; Wt 113.9 kg
[~2020-06-29 07:30] MED LIST changes: +LIDOCAINE 1% MDV 20ML VIAL SQ PRN
--- OUTSIDE RECORDS SUMMARY | 2020-06-29 07:34 | CCD | Continuity of Care Document ---
Author Author Rodrick RAMOS DPM Organization Unknown Address [address] [place] [address] [address] [place] [address] Phone [phone] Care Team Providers Care Garage Hand Name Role Phone Crispin BROOKS, Kayode DILLARDM [phone] Problems Description No Information Available Social History Type Date Description Comments Sex Unknown ETOH Use Rarely consumes alcohol Tobacco Use Start: Unknown Patient has never smoked Allergies, Adverse Reactions, Alerts Active Allergies Reaction Severity Comments Date Amoxicillin urticaria 06/12/2020 Medications Active Medications SIG Qnty Indications Ordering Provide r Date Escitalopram Oxalate Unknown Ventolin HFA Unknown Albuterol Sulfate Unknown /0 000 Hydroxyzine Pamoate Unknown Immunizations Description No Information Available Vital Signs Date Vital Result Comment 06/12/2020 7:05am Height 66.75 inches 5'6.75" Weight 245.00 lb BP Systolic 118 mmHg BP Diastolic 80 mmHg Heart Rate 78 /min BMI (Body Mass Index) 38.7 kg/m2 Results Description No Information Available Procedures Description No Information Available Medical Devices Description No Information Available Encounters Description No Information Available Assessments Description No Information Available Plan of Treatment Future Appointment(s):* 07/10/2020 10:00 am - Baron Ramos DPM at [facility] Functional Status Description No Information Available Mental Status Description No Information Available Referrals Description No Information Available
--- OUTSIDE RECORDS SUMMARY | 2020-06-29 07:34 | CCD | Continuity of Care Document ---
Author Author Rodrick GROVES DPM Organization Unknown Address [address] [place] [address] [address] [place] [address] Phone [phone] Care Team Providers Care Paint Factory Worker Name Role Phone Kayode BocanegraM [phone] Problems Active Problems Provider Date Acquired unequal leg length Baron [facility] DPM Onset: 06/09 Social History Type Date Description Comments Sex Unknown ETOH Use Rarely consumes alcohol Tobacco Use Start: Unknown Patient has never smoked Allergies, Adverse Reactions, Alerts Active Allergies Reaction Severity Comments Date Amoxicillin urticaria 06/12/2020 Medications Active Medications SIG Qnty Indications Ordering Provide r Date Escitalopram Oxalate Unknown Ventolin HFA Unknown Albuterol Sulfate Unknown 000 Hydroxyzine Pamoate Unknown Immunizations Description No [...] Date Location Provider Dx Diagnosis Office Visit 06/12/2020 8:30a [facility] Baron Groves DPM M21.752 Unequal limb length (acquired), left femur Assessments Date Code Description Provider 06/12/2020 M21.752 Unequal limb length (acquired), left femur Baron Groves DPM Plan of Treatment Future Appointment(s):* 07/10/2020 10:00 am - Baron Groves DPM at [facility] Functional Status Description No Information Available Mental Status Description No Information Available Referrals Description No Information Available
--- OUTSIDE RECORDS SUMMARY | 2020-06-29 07:34 | CCD | Continuity of Care Document ---
Author Author Rodrick CURRY PA Organization Unknown Address [address] [place] [address] Phone [phone] Care Team Providers Care Coastal Tug Mate Name Role Phone [facility] AUTM [phone] Problems Active Problems Provider Date Allergic asthma without status asthmaticus Kayode Roa , DONNIE Onset: 12/31/2013 Allergic condition Kayode Roa RPA [...] SIG Qnty Indications Ordering Provide r Date Ventolin HFA 108(90Base) mcg/Act A erosol ii puffs every 4-6 hours as needed 8gm Adin batista, D.O., FAAFP Medications Administered in Office Medication SIG Qnty Indications Ordering Provider Date Injection (SC)/(Im) Injection Nurses Schedule 06/13/2014 Immunizations CPT Code Status Date Vaccine Lot # [id number] Given 03/06/2020 Influenza Virus Vaccine, Quadrivalent, Slit Virus, Im Use 3Y & Up [id number] Vital Signs Date Vital Result Comment 05/20/2020 3:49pm BP Systolic 104 mmHg BP Diastolic 72 mmHg Body Temperature 97.2 F Heart Rate 114 /min Respiratory Rate 18 /min Height 66.75 inches 5'6.75" Weight 239.00 lb [place] Body Weight 142 lb BMI (Body Mass Index) 37.7 kg/m2 O2 % BldC Oximetry 95 % 03/06/2020 2:11pm BP Systolic 110 mmHg BP Diastolic 64 mmHg Body Temperature 98.7 F Heart Rate 58 /min Respiratory Rate 16 /min Height 66.75 inches 5'6.75" Weight 232.00 lb [place] Body Weight 142 lb BMI (Body Mass Index) 36.6 kg/m2 O2 % BldC Oximetry 97 % Results Description No Information Available Procedures Description No Information Available Medical Devices Description No Information Available Encounters Type Date Location Provider Dx Diagnosis Office Visit 05/20/2020 3:30p [place] [facility] Jaylon Curry PA F33.0 Major depressive disorder, recurrent, mi ld Office Visit 03/06/2020 1:15p [place] [facility] Kayode Roa, RP A J34.2 Deviated nasal septum R09.81 Nasal congestion J32.9 Chronic sinusitis, unspecifi ed Z23 Encounter for immunization Assessments Date Code Description Provider 05/20/2020 F33.0 Major depressive disorder, recur rent, mild Billie Curry PA 03/06/2020 J34.2 Deviated nasal septum Nicolette Roa, RPA 03/06/2020 R09.81 Nasal congestion Kayode Roa, RPA 03/06/2020 J32.9 Chronic sinusitis, unspecified H Kayode jenkins, RPA 03/06/2020 Z23 Encounter for immunization Kayode Grossman RPA Plan of Treatment Future Appointment(s):* 06/01/2020 2:40 pm - Kayode Roa RPA at [facility] [place] * 06/08/2020 1:00 pm - Kayode Roa RPA at [facility] [place] Functional Status Description No Information Available Mental Status Description No Information Available Referrals Refer to Reason for Referral Status Appt Date Eliceo Pugh M.D. Septal deviation with chroni c sinus issues. External deformity. Sent 04/28/2020 [facility] [address] [address] [phone]
--- OUTSIDE RECORDS SUMMARY | 2020-06-29 07:34 | CCD | Continuity of Care Document ---
Author Author Rodrick WARE MD Organization Unknown Address [address] [facility] [address] [place] [address] Phone [phone] Care Team Providers Care Aviation Engineer Name Role Phone Kayode Roa AUTM AUTM Unavailable Problems Active Problems Provider Date Deviated nasal septum Kayode Rendon MD Onset: 04/21/2014 Social History Type Date Description Comments Sex Unknown ETOH Use Denies alcohol use Tobacco Use Start: Unknown Non Smoker Recreational Drug Use Denies Drug Use Allergies, Adverse Reactions, Alerts Active Allergies Reaction Severity Comments Date Amoxicillin 12/03/2013 Medications Active Medications SIG Qnty Indications Ordering Provide r Date Ventolin HFA 108(90Base) mcg/Act A erosol 2 puffs qid/prn Unknown Immunizations Description No Information Available Vital Signs Date Vital Result Comment 05/26/2020 8:50am Height 67 inches 5'7" Weight 225.00 lb BMI (Body Mass Index) 35.2 kg/m2 [place] Body Weight 148 lb Weight 102.060 kg BSA (Body Surface Area) 2.13 m2 04/06/2020 10:06am Height 67 inches 5'7" Weight 225.00 lb BMI (Body Mass Index) 35.2 kg/m2 [place] Body Weight 148 lb Weight 102.060 kg BSA (Body Surface Area) 2.13 m2 Results Description No Information Available Procedures Description No Information Available Medical Devices Description No Information Available Encounters Type Date Location Provider Dx Diagnosis Office Visit 04/06/2020 10:45a [facility] Vernon buckley MD J32.4 Chronic pansinusitis J34.2 Deviated nasal septum Assessments Date Code Description Provider 04/06/2020 J32.4 Chronic pansinusitis Vernon pearce MD 04/06/2020 J34.2 Deviated nasal septum Vernon buckley MD Plan of Treatment 04/06/2020 - Vernon Ware MD* J32.4 Chronic pansinusitis* Recommendations:* CT scan need to plan treatment * J34.2 Deviated nasal septum Functional Status Description No Information Available Mental Status Description No Information Available Referrals Refer to Reason for Referral Status Appt Date Lexy, Eliceo Renee MD [employer] SEPTAL DEVIATION WITH CH RONIC SINUS ISSUES EXT DEFORMITY REF M IKNG INS MVP Scheduled 04/28/[address] [address] [phone]
--- OUTSIDE RECORDS SUMMARY | 2020-06-29 07:34 | CCD | Continuity of Care Document ---
Author Author Rodrick ROA [facility] Organization Unknown Address [address] [address] Phone [phone] Care Team Providers Care Mill Oiler Name Role Phone [facility] AUTM [phone] Problems Active Problems Provider Date Allergic asthma [...] Indications Ordering Provide r Date Escitalopram Oxalate 10mg Tablets 1 by mouth every day 90tabs Adin Murillo D.O., FAAFP Ventolin HFA 108(90Base) mcg/Act A erosol ii puffs every 4-6 hours as needed 8gm Adin batista D.O., FAAFP Medications Administered in Office Medication SIG Qnty Indications Ordering Provider Date Injection (SC)/(Im) Injection Nurses Schedule 06/13/2014 Immunizations CPT Code Status Date Vaccine Lot # [id number] Given 03/06/2020 Influenza Virus Vaccine, Quadrivalent, Slit Virus, Im Use 3Y & Up [id number] Vital Signs Date Vital Result Comment 06/01/2020 1:52pm BP Systolic 118 mmHg BP Diastolic 80 mmHg Body Temperature 98.2 F Heart Rate 78 /min Respiratory Rate 18 /min Height 66.75 inches 5'6.75" Weight 250.00 lb [place] Body Weight 142 lb BMI (Body Mass Index) 39.4 kg/m2 O2 % BldC Oximetry 97 % 05/20/2020 3:49pm BP Systolic 104 mmHg BP Diastolic 72 mmHg Body Temperature 97.2 F Heart Rate 114 /min Respiratory Rate 18 /min Height 66.75 inches 5'6.75" Weight 239.00 lb [place] Body Weight 142 lb BMI (Body Mass Index) 37.7 kg/m2 O2 % BldC Oximetry 95 % Results Description No Information Available Procedures Description No Information Available Medical Devices Description No Information Available Encounters Type Date Location Provider Dx Diagnosis Office Visit 06/01/2020 2:40p [place] [facility] Kayode Roa, RP A F33.1 Major depressive disorder, recurrent, moderate R45.851 Suicidal ideations M21.761 Unequal limb length (acquire d), right tibia J34.2 Deviated nasal septum Office Visit 05/20/2020 3:30p [place] [facility] Jaylon Curry PA F33.0 Major depressive disorder, recurrent, mi ld Office Visit 03/06/2020 1:15p [place] [facility] Kayode Roa, RP A J34.2 Deviated nasal septum R09.81 Nasal congestion J32.9 Chronic sinusitis, unspecifi ed Z23 Encounter for immunization Assessments Date Code Description Provider 06/01/2020 F33.1 Major depressive disorder, recur rent, moderate Kayode Roa, RPA 06/01/2020 R45.851 Suicidal ideations Andrea Roa, RPA 06/01/2020 M21.761 Unequal limb length (acquired), right tibia Kayode Roa, RPA 06/01/2020 J34.2 Deviated nasal septum Nicolette Roa, RPA 05/20/2020 F33.0 Major depressive disorder, recur rent, mild Billie Curry PA 03/06/2020 J34.2 Deviated nasal septum Nicolette Roa, RPA 03/06/2020 R09.81 Nasal congestion Kayode Roa, RPA 03/06/2020 J32.9 Chronic sinusitis, unspecified H Kayode jenkins, DONNIE 03/06/2020 Z23 Encounter for immunization Kayode Grossman RPA Plan of Treatment Future Appointment(s):* 09/11/2020 9:00 am - Kayode Roa RPA at [facility] [place] * 06/08/2020 1:00 pm - Kayode Roa, DONNIE at [facility] Functional Status Description No Information Available Mental Status Description No Information Available Referrals Refer to Reason for Referral Status Appt Date Baron Groves M.D. Leg length discrepancy -requesting lift? Se nt 06/12/[address] [place] [id number] Elicoe Pugh M.D. Septal deviation with chroni c sinus issues. External deformity. Sent 04/28/2020 [facility] [address] [address] [phone]
--- OUTSIDE RECORDS SUMMARY | 2020-06-29 07:34 | CCD | Continuity of Care Document ---
Author Author Rodrick JOSE PA Organization Unknown Address [address] [place] [address] Phone [phone] Care Team Providers Care Recruiting Scheduler Name Role Phone [facility] AUTM [phone] Problems Active Problems Provider Date Allergic asthma [...] CPT Code Status Date Vaccine Lot # [id number] Given 03/06/2020 Influenza Virus Vaccine, Quadrivalent, Slit Virus, Im Use 3Y & Up [id number] Vital Signs Date Vital Result Comment 05/20/2020 3:49pm BP Systolic 104 mmHg BP Diastolic 72 mmHg Body Temperature 97.2 F Heart Rate 114 /min Respiratory Rate 18 /min Height 66.75 inches 5'6.75" Weight 239.00 lb [place] Body Weight 142 lb BMI (Body Mass Index) 37.7 kg/m2 O2 % BldC Oximetry 95 % 03/06/2020 2:11pm BP Systolic 110 mmHg BP Diastolic 64 mmHg Body Temperature 98.7 F Heart Rate 58 /min Respiratory Rate 16 /min Height 66.75 inches 5'6.75" Weight 232.00 lb [place] Body Weight 142 lb BMI (Body Mass Index) 36.6 kg/m2 O2 % BldC Oximetry 97 % Results Description No Information Available Procedures Description No Information Available Medical Devices Description No Information Available Encounters Type Date Location Provider Dx Diagnosis Office Visit 03/06/2020 1:15p [place] [facility] Kayode Roa, RP A J34.2 Deviated [...] Future Appointment(s):* 06/08/2020 1:00 pm - Kayode Roa RPA at [facility] Functional Status Description No Information Available Mental Status Description No Information Available Referrals Refer to Reason for Referral Status Appt Date Eliceo Pugh M.D. Septal deviation with chroni c sinus issues. External deformity. Sent 04/28/2020 [facility]NT [address] [id number] [phone]
--- OUTSIDE RECORDS SUMMARY | 2020-06-29 07:35 | CCD ---
Author Author [facility] Organization [facility] Address Unknown Phone Unavailable Care Team Providers Care Chief Clerk Name Role Phone Barraclough, Billie PA Unavailable Unavailable Barraclough, Billie PA Unavailable Unavailable Barraclough, Billie PA Unavailable Unavailable Barraclough, Billie PA Unavailable Unavailable Barraclough, Billie PA Unavailable Unavailable Barraclough, Billie PA Unavailable Unavailable Fanny RAMOS DPM Unavailable Unavailable Fanny RAMOS DPM Unavailable Unavailable Fanny RAMOS DPM Unavailable Unavailable Fanny RAMOS DPM Unavailable Unavailable Fanny RAMOS DPM Unavailable Unavailable Fanny RAMOS DPM Unavailable Unavailable Fanny RAMOS DPM Unavailable Unavailable Fanny RAMOS DPM Unavailable Unavailable Fanny RAMOS DPM Unavailable Unavailable Fanny RAMOS DPM Unavailable Unavailable Fanny RAMOS DPM Unavailable Unavailable Fanny RAMOS DPM Unavailable Unavailable Fanny RAMOS DPM Unavailable Unavailable Fanny RAMOS DPM Unavailable Unavailable Fanny RAMOS DPM Unavailable Unavailable Fanny RAMOS DPM Unavailable Unavailable Fanny RAMOS DPM Unavailable Unavailable Fanny RAMOS DPM Unavailable Unavailable Fanny RAMOS DPM Unavailable Unavailable Fanny RAMOS DPM Unavailable Unavailable Fanny RAMOS DPM Unavailable Unavailable Fanny RAMOS DPM Unavailable Unavailable Fanny RAMOS DPM Unavailable Unavailable Fanny RAMOS DPM Unavailable Unavailable Fanny RAMOS DPM Unavailable Unavailable Fanny RAMOS DPM Unavailable Unavailable Fanny RAMOS DPM Unavailable Unavailable Fanny RAMOS DPM Unavailable Unavailable Fanny RAMOS DPM Unavailable Unavailable MAJFanny OVERTON DPM Unavailable Unavailable Crispin, D Kayode PA Unavailable [...] Unavailable Crispin, D Kayode PA Unavailable Unavailable Abriss, B Vernon BACK Unavailable Unavailable Abriss, B Vernon BACK Unavailable Unavailable Abriss, B Vernon BACK Unavailable Unavailable Abriss, B Vernon BACK Unavailable Unavailable Abriss, B Vernon BACK Unavailable Unavailable Abriss, B Vernon BACK Unavailable Unavailable Abriss, B Vernon BACK Unavailable Unavailable Abriss, B Vernon BACK Unavailable Unavailable Abriss, B Vernon BACK Unavailable Unavailable Abriss, B Vernon BACK Unavailable Unavailable Abriss, B Vernon BACK Unavailable Unavailable Abriss, B Vernon BACK Unavailable Unavailable Abriss, B Vernon BACK Unavailable Unavailable Abriss, B Vernon BACK Unavailable Unavailable Abriss, B Vernon BACK Unavailable Unavailable Abriss, B Vernon BACK Unavailable Unavailable Abriss, B Vernon BACK Unavailable Unavailable Abriss, B Vernon BACK Unavailable Unavailable BROUGHAL, C LEEANN PA Unavailable [...] is protected by Article 27-F of the [facility] Public Health law. If you continue you may have access to information: Regarding HIV / AIDS; Provided by facilities licensed or operated by the [facility] Office of Mental Health; or Provided by the [facility] Office for People With Developmental Disabilities. If such information is present, then the following [facility] mandated warning applies: This information has been [...] law may result in a fine or snf sentence or both. A general authorization for [...] Date Indications Data Source(s ) Outpatient Attender: ADELINA RAMOS [facility] Office 09/2020 07:30:00 AM EST [facility] ([facility] Outpatient Attender: Kayode BROOKS [place] Office 01:40:00 PM EST [facility] ([facility] Outpatient Attender: Billie BROOKS [facility] 05/20/2020 02:30:00 PM EST [facility] ([facility] Outpatient Attender: Vernon Pugh/Kiera/Justice/Mary Jane reece 04/06/2020 09:45:00 AM EST [facility] ([facility] Outpatient Attender: Kayode BROOKS [place] Office 01:15:00 PM EDT [facility] ([facility] Outpatient [facility] 03:10:00 PM EDT - 12/24/2019 03:11:00 PM EDT COVID 19 COLLEGE SCREENING [facility] COVID 19 COLLEGE SCREENING Patient discharged. Outpatient Attender: Kayode BROOKS [place] Office 04:00:00 PM EDT [facility] ([facility] Immunizations Vaccine Date Status Description Data Source(s) New in 2012. IIV4 03/06/2020 02:12:00 PM EDT completed [facility] ([facility] Medications Medication Brand Name Start Date Product Form Dose Route Admi nistrative Instructions Pharmacy Instructions Status Indications Reaction Description Data Source(s) Escitalopram 10 MG Oral Tablet ESCITALOPRAM OXALATE 06/06/2020 1 2:00:00 AM EST tablet 90 TAKE ONE TABLET BY MOUTH EVERY D AY TAKE ONE TABLET BY MOUTH EVERY DAY SOLD: 06/06/2020 [facility] 50 mg 06/06/2020 12:00:00 AM EST tablet 180 TAKE ONE TABLET BY MOUTH TWICE A DAY TAKE ONE TABLET BY MOUTH TWICE A DAY SOLD: 06/06/2020 [facility] Escitalopram 10 MG Oral Tablet Escitalopram Oxalate 05/29/2020 1 2:00:00 AM EST ORAL active [facility] ( [facility] Escitalopram 10 MG Oral Tablet ESCITALOPRAM OXALATE 05/22/2020 1 2:00:00 AM EST tablet 7 TAKE ONE TABLET BY MOUTH EVERY D AY FOR DEPRESSION TAKE ONE TABLET BY MOUTH EVERY DAY FOR DEPRESSION SOLD: 05/22/2020 [facility] 50 mg 05/22/2020 12:00:00 AM EST tablet 14 TAKE ONE TABLET BY MOUTH TWICE A DAY FOR ANXIETY TAKE ONE TABLET BY MOUTH TWICE A DAY FOR ANXIETY SOLD: 05/22/2020 [facility] 50 mg 05/22/2020 12:00:00 AM EST tablet 14 TAKE ONE TABLET BY MOUTH TWICE A DAY FOR ANXIETY TAKE ONE TABLET BY MOUTH TWICE A DAY FOR ANXIETY SOLD: 05/28/2020 [facility] Escitalopram 10 MG Oral Tablet ESCITALOPRAM OXALATE 05/22/2020 1 2:00:00 AM EST tablet 7 TAKE ONE TABLET BY MOUTH EVERY D AY FOR DEPRESSION TAKE ONE TABLET BY MOUTH EVERY DAY FOR DEPRESSION SOLD: 05/28/2020 [facility] 90 mcg/actuation 02/02/2020 12:00:00 AM EDT HFA [...] 12:00:00 AM EDT ORAL active [facility] ( [facility] 10 mg 08/30/2019 12:00:00 AM EDT tablet 30 TAKE ONE TABLET BY MOUTH EVERY DAY AT BEDTIME TAKE ONE TABLET BY MOUTH EVERY DAY AT BEDTIME SOLD: 08/31/2019 [facility] Azithromycin 250 MG Oral Tablet Azithromycin 08/30/2019 12:00:00 AM E DT ORAL active [facility] ([facility] Insurance Providers Payer name Policy type / Coverage type Policy ID Covered constitution party ID Covered constitution party's relationship to leach Policy Leach Plan Information [facility] [id number] SP [id number] SELF PAY ONLY [id number] SP [id number] O BLUE [id number] SP [id number] [facility] O [id number] S [id number] [facility] [id number] SP [id number] [facility] ESSENTIAL PLAN [id number] S [id number] [facility] SELECT CARE [id number] CHILD [id number] [facility] Health Plan Health Maintenance Organization (HMO) [id number] Self [id number] [employer] BC//BS Medigap Part B [id number] Self [id number] Medicaid Medicaid [id number] Self [id number] Community Plan Commercial [id number] Self [id number] [employer] BC//BS Medigap Part B [id number] Family Dependent [id number] [employer] BC//BS Commercial [id number] Self [id number] BS Child Health Plus Health Maintenance Organization (HMO) Self PUPIL BENEFITS HEALTH PL S [id number] C [id number] [employer] BCBS P [id number] S [id number] D Excell[employer] BCBS Dental P [id number] S [id number] PUPIL BENEFITS PLAN, INC [id number] SP [id number] BLUE CROSS THOMAS PLAN [id number] SP [id number] D Managed Care [employer] P [id number] S [id number] Medicaid Dental S [id number] S [id number] D Healthplex O [id number] S [id number] HMO BLUE [id number] SP [id number] Problems, Conditions, and Diagnoses Code Display Name Description Problem Type Effective Dates Data Source(s) 248024047 Acquired unequal leg length Acquired unequal leg lengt h Problem 06/28/2020 12:00:00 AM EST [facility] ([facility] [id number] Autistic disorder Autistic disorder Problem 08/29 12:00:00 AM EDT [facility] ([facility] Z11.59 Encounter for screening for other viral diseases ENCOUNTER FOR SCREENING FOR OTHER VIRAL DISEASES Diagnosis 12/24/2019 03:10:00 PM EDT [facility] Z02.0 Encounter for examination for admission to educational institution ENCOUNTER FOR EXAM FOR ADMISSION TO EDUCATIONAL INSTITUTION Diagnosis 12/24/2019 03:10:00 PM EDT [facility] Surgeries/Procedures Procedure Description Date Indications Data Source(s) U0003 SARS-CoV-2 detection by nucleic acid 12/24/2019 12:00: 00 AM EDT [facility] Results ID Date Data Source [id number] 06/24/2020 12:15:00 PM EST [facility] Name Value Range Interpretation Code Description Data Zeina rce(s) Supporting Document(s) SARS coronavirus 2 RNA Not Detected [facility] This lab was ordered by [facility] and reported by [facility]. ID Date Data Source [id number] 06/15/2020 11:26:00 AM EST [facility] Name Value Range Interpretation Code Description Data Zeina rce(s) Supporting Document(s) SARS-CoV-2 RNA Resp Ql YASMIN+probe Negative [facility] This lab was ordered by [facility] and reported by [employer] [employer]. ID Date Data Source [id number] 06/03/2020 12:00:00 AM EST [facility] Name Value Range Interpretation Code Description Data Zeina rce(s) Supporting Document(s) SARS-CoV-2 (COVID-19) RNA [Presence] in Respiratory specimen by YASMIN with probe detection Not Detected [facility] This lab was ordered by [facility] and reported by [employer]. ID Date Data Source [id number] 05/20/2020 09:34:00 PM EST [facility] Name Value Range Interpretation Code Description Data Zeina rce(s) Supporting Document(s) SARS coronavirus 2 RNA [Presence] in Res piratory specimen by YASMIN with probe detection NEGATIVE [facility] This lab was ordered by [facility] a nd reported by [facility]. ID Date Data Source [id number] 03/24/2020 12:55:00 PM EST [facility] Name Value Range Interpretation Code Description Data Zeina rce(s) Supporting Document(s) SARS-CoV-2 RNA Resp Ql YASMIN+probe [facility] This lab was ordered by [facility] and reported by [employer] [employer]. ID Date Data Source [id number] 02/18/2020 08:51:00 AM EDT [facility] Name Value Range Interpretation Code Description Data Zeina rce(s) Supporting Document(s) SARS-CoV-2 RNA Resp Ql YASMIN+probe [facility] This lab was ordered by [employer] and reported by [employer] [employer]. ID Date Data Source [id number] 12/27/2019 01:31:00 PM EDT [facility] Name Value Range Interpretation Code Description Data Zeina rce(s) Supporting Document(s) SARS-CoV-2 RNA Resp Ql YASMIN+probe [facility] This lab was ordered by [facility] and reported by [employer] [employer]. ID Date Data Source [id number] 12/27/2019 08:50:00 AM EDT [facility] Name Value Range Interpretation Code Description Data Zeina rce(s) Supporting Document(s) SARS-CoV-2 YASMIN result Normal (applies to non-nu meric results) [facility] Reference Not Detected This test was de veloped and its performance characteristics determined by [facility]. This test has not been FDA cleared [...] detected) result in this assay. Performed at: [facility] [id number] Child Welfare Consultant: Nahomy Romeor MD, Phone: [phone] Procedure Vital Signs ID Date Data Source UNK Name Value Range Interpretation Code Description Data Source(s) Body mass index (BMI) [Ratio] 38.7 kg/m2 38.7 k g/m2 [facility] Heart rate 78 /min 78 /min [facility] ([facility] Diastolic blood pressure 80 mm[Hg] 80 mm[Hg] [facility] ([facility] Systolic blood pressure 118 mm[Hg] 118 mm[Hg] M EDENT ([facility] Body weight 245.00 [lb_av] 245.00 [lb_av] MEDEN T ([facility] Body height 66.75 [in_i] 66.75 [in_i] [facility] ([facility] 5'6.75" Oxygen saturation in Arterial blood by Pulse oximetry 97 % 97 % [facility] ([facility] Body mass index (BMI) [Ratio] 39.4 kg/m2 39.4 k g/m2 [facility] ([facility] [place] body weight 142 [lb_av] 142 [lb_av] MEDEN T ([facility] Body weight 250.00 [lb_av] 250.00 [lb_av] MEDEN T ([facility] Body height 66.75 [in_i] 66.75 [in_i] [facility] ([facility] 5'6.75" Respiratory rate 18 /min 18 /min [facility] ( [facility] Heart rate 78 /min 78 /min [facility] ([facility] Body temperature 98.2 [degF] 98.2 [degF] [facility] ([facility] Diastolic blood pressure 80 mm[Hg] 80 mm[Hg] [facility] ([facility] Systolic blood pressure 118 mm[Hg] 118 mm[Hg] M EDENT ([facility] Body surface area Derived from formula 2.13 m2 2.13 m2 [facility] ([facility], ) Body weight 102.060 kg 102.060 kg [facility] ([facility], ) [place] body weight 148 [lb_av] 148 [lb_av] MEDEN T ([facility]) Body mass index (BMI) [Ratio] 35.2 kg/m2 35.2 k g/m2 [facility] ([facility]) Body weight 225.00 [lb_av] 225.00 [lb_av] MEDEN T ([facility]) Body height 67 [in_i] 67 [in_i] [facility] ([facility]) 5'7" Oxygen saturation in Arterial blood by Pulse oximetry 95 % 95 % [facility] ([facility] Body mass index (BMI) [Ratio] 37.7 kg/m2 37.7 k g/m2 [facility] ([facility] [place] body weight 142 [lb_av] 142 [lb_av] MEDEN T ([facility] Body weight 239.00 [lb_av] 239.00 [lb_av] MEDEN T ([facility] Body height 66.75 [in_i] 66.75 [in_i] [facility] ([facility] 5'6.75" Respiratory rate 18 /min 18 /min [facility] ( [facility] Heart rate 114 /min 114 /min [facility] ([facility] Body temperature 97.2 [degF] 97.2 [degF] [facility] ([facility] Diastolic blood pressure 72 mm[Hg] 72 mm[Hg] [facility] ([facility] Systolic blood pressure 104 mm[Hg] 104 mm[Hg] M EDENT ([facility] Body surface area Derived from formula 2.13 m2 2.13 m2 [facility] ([facility]) Body weight 102.060 kg 102.060 kg [facility] ([facility]) [place] body weight 148 [lb_av] 148 [lb_av] MEDEN T ([facility]) Body mass index (BMI) [Ratio] 35.2 kg/m2 35.2 k g/m2 [facility] ([facility]) Body weight 225.00 [lb_av] 225.00 [lb_av] MEDEN T ([facility], ) Body height 67 [in_i] 67 [in_i] MED[facility] ([facility], ) 5'7" Oxygen saturation in Arterial blood by Pulse oximetry 97 % 97 % [facility] ([facility] Body mass index (BMI) [Ratio] 36.6 kg/m2 36.6 k g/m2 [facility] ([facility] [place] body weight 142 [lb_av] 142 [lb_av] MEDEN T ([facility] Body weight 232.00 [lb_av] 232.00 [lb_av] MEDEN T ([facility] Body height 66.75 [in_i] 66.75 [in_i] [facility] ([facility] 5'6.75" Respiratory rate 16 /min 16 /min [facility] ( [facility] Heart rate 58 /min 58 /min [facility] ([facility] Body temperature 98.7 [degF] 98.7 [degF] [facility] ([facility] Diastolic blood pressure 64 mm[Hg] 64 mm[Hg] [facility] ([facility] Systolic blood pressure 110 mm[Hg] 110 mm[Hg] M EDENT ([facility] Oxygen saturation in Arterial blood by Pulse oximetry 97 % 97 % [facility] ([facility] Body mass index (BMI) [Ratio] 34.2 kg/m2 34.2 k g/m2 [facility] ([facility] [place] body weight 142 [lb_av] 142 [lb_av] MEDEN T ([facility] Body weight 217.00 [lb_av] 217.00 [lb_av] MEDEN T ([facility] Body height 66.75 [in_i] 66.75 [in_i] [facility] ([facility] 5'6.75" Respiratory rate 16 /min 16 /min [facility] ( [facility] Heart rate 72 /min 72 /min DC ([facility] Body temperature 98.3 [degF] 98.3 [degF] DC ([facility] Diastolic blood pressure 62 mm[Hg] 62 mm[Hg] DC ([facility] Systolic blood pressure 124 mm[Hg] 124 mm[Hg] Dean GOODE ([facility]
[2020-06-29] MEDS ORDERED: ROCURONIUM BROMIDE 50 MG/5 ML VIAL As Ordered ONE (08:40)
[2020-06-29] MEDS ORDERED: propofoL 200 MG/20 ML VIAL As Ordered ONE (08:40)
[2020-06-29] MEDS ORDERED: LIDOCAINE 2% 100MG/5ML SDV (FOR ANES.) As Ordered ONE (08:40)
[2020-06-29] MEDS ORDERED: MIDAZOLAM INJ 2MG/2ML VIAL (J2250 PER 1MG) As Ordered ONE (08:41)
[2020-06-29] MEDS ORDERED: fentaNYL 250 MCG/5 ML INJECTION (J3010) As Ordered ONE (08:41)
[2020-06-29] MEDS ORDERED: DOXY-350 PO (08:56)
[2020-06-29] MEDS ORDERED: PERCOCET PO (08:56)
[2020-06-29] MEDS ORDERED: LR 1,000 ML IV ONE (09:00)
[2020-06-29] MEDS ORDERED: LIDOCAINE W/EPINEPHRINE 1% 20ML VIAL As Ordered ONE (09:56)
[2020-06-29] MEDS ORDERED: METHYLENE BLUE 0.5% (5MG/ML) 10 ML AMP (PROVAYBLUE) As Ordered ONE (09:57)
[2020-06-29] MEDS ORDERED: OXYMETAZOLINE 0.05% NASAL SPRAY (AFRIN) As Ordered ONE (09:57)
[2020-06-29] MEDS ORDERED: dexameTHASONE 4 MG/ML 1ML VIAL (J1100 PER 1MG) As Ordered ONE (10:14)
[2020-06-29] MEDS ORDERED: KETOROLAC 60MG 2ML VIAL As Ordered ONE (10:35)
[2020-06-29] MEDS ORDERED: ACETAMINOPHEN 1000MG 100ML IV BTL (OFIRMEV) (J0131 PER 10MG) As Ordered ONE (10:35)
[2020-06-29] MEDS ORDERED: ONDANSETRON 4MG/2ML VIAL As Ordered ONE (10:36)
[2020-06-29] MEDS ORDERED: SUGAMMADEX SODIUM 500 MG/5 ML VIAL (BRIDION) As Ordered ONE (10:36)
[2020-06-29] MEDS ORDERED: METOCLOPRAMIDE INJ 10MG/2ML VIAL (J2765 PER 1) IV PRN (11:45)
[2020-06-29] MEDS ORDERED: PERCOCET 5MG/325MG TAB PO PRN ×2 (11:45→12:45)
[2020-06-29] MEDS ORDERED: LR 1,000 ML IV SCH (11:45)
[2020-06-29] MEDS ORDERED: fentaNYL 100 MCG/2 ML INJECTION (J3010) IV PRN (11:45)
[2020-06-29] MEDS ORDERED: ONDANSETRON 4MG/2ML VIAL IV PRN (11:45)
[2020-06-29] MEDS ORDERED: IBUPROFEN 800 MG TAB PO PRN (12:45)
[2020-06-29 12:55] VITALS: BP 140/72
--- NOTE | 2020-07-07 13:48 | RO ---
OPERATIVE NOTE DATE OF OPERATION: 06/29/2020 PREOPERATIVE DIAGNOSES: 1. Deviated septum. 2. Chronic rhinitis. POSTOPERATIVE DIAGNOSES: 1. Deviated septum. 2. Chronic rhinitis. PROCEDURES: 1. Septoplasty. 2. Partial reduction of inferior turbinates. SURGEON: Vernon Ware M.D. ANESTHESIA: General endotracheal anesthesia. INDICATIONS FOR PROCEDURE: This is a 24-year-old with a long history of nasal obstruction. DESCRIPTION OF PROCEDURE: Satisfactory general endotracheal anesthesia was administered. Pharyngeal pack placed and the nose prepared for surgery by placing cotton-soaked pledgets with Afrin solution to the nasal cavity bilaterally and 1% Xylocaine with 1:100,000 epinephrine was used to inject into the nasal septum and inferior turbinates. A Percy incision was made on the left side of the nose. A mucoperichondrial flap and envelope was created on the left side of the nasal septum and carried down to the junction of the bony and cartilaginous septum. This was then with an elevator, and an envelope was then created on the right side of the septum. A Violeta scissors was used to make a cut high in the perpendicular plate in the midportion of the vomer, and a central segment of the bony septum was resected. Next, with the round knife on the Hidalgo elevator, a strip of cartilage was resected from the floor of the nose, mobilizing the quadrilateral cartilage and creating a swinging door. Then, a central segment of cartilaginous septum was resected, preserving a 1 cm dorsal and caudal strut. Double-action rongeur was used to take down deflected portions of the perpendicular plate, as well. Finally, the maxillary crest spur was taken down after elevating mucoperiosteum off both sides of it with a chisel. A segment of the resected cartilage was morselized and placed back into the septal envelope. The incision was closed using an interrupted #5-0 chromic suture. Then, a #4-0 plain suture was placed in a [id number] fashion through the two leaves of mucoperichondrium to appose them. Next, turbinate surgery was done. He had markedly hypertrophic turbinates. They were medially infractured and using the turbinate Coblator probe, two parallel passes of the probe were made with 10 second coblation times for each of the set points on the probe. Finally, suction cautery used to coagulate the posterior inferior tip of the inferior turbinate. At the completion of surgery, Hopson splints were placed in the nose and sewn to the columellar with 2-0 Prolene suture. The pharyngeal pack was removed and the throat suctioned. The patient was then awakened, extubated, and sent to recovery in satisfactory condition. He will be discharged home with Tylox for pain and doxycycline 100 mg b.i.d. He will be seen in the office in one week.
== END 2020-06-29 13:00 | disposition home or self-care (01) ==
LOC: M SDC 07:30
PROVIDERS: ATTEND Specialist
DX: J34.2 Deviated nasal septum (principal); J31.0 Chronic rhinitis; F32.9 Major depressive disorder, single episode, unspecified; F41.9 Anxiety disorder, unspecified; E66.9 Obesity, unspecified; J45.909 Unspecified asthma, uncomplicated; Z79.899 Other long term (current) drug therapy; Z88.0 Allergy status to penicillin
CPT/HCPCS: 30140; 30520; 88300; 88305; J0131; J1100; J1885; J2250; J2405; J3010; Q9968

== ENCOUNTER → 2025-02-27 | Outpatient (CLI) | payer BC, OTHER ==
[~2025-02-27] MED LIST changes: +DOXY-440 PO; -LIDOCAINE 1% MDV 20ML VIAL SQ PRN; +PERCOCET PO
== END ==
LOC: M WUC 09:23
PROVIDERS: ATTEND Physician Assistant
DX: M25.561 Pain in right knee (principal)